=== PATIENT | male | born 1960 | race Caucasian/White ===

== ENCOUNTER 2018-05-21 11:52 | Outpatient (CLI) | payer OTHER, SELFPAY ==
[2018-05-21 12:23] LABS: Abs Immature Grans 0.01 k/cumm (0.0-0.09); Absolute Basophil Count 0.03 k/cumm (0.0-0.2); Absolute Eosinophil Count 0.19 k/cumm (0.0-0.7); Absolute Lymphocyte Count 1.54 k/cumm (1.2-3.4); Absolute Monocyte Count 0.42 k/cumm (0.11-0.7); Absolute Neutrophil Count 2.82 k/cumm (1.2-6.7); Basophils % 0.6; Eosinophils % 3.8; HCT 41.7 % (40.0-50.0); HGB 15.2 g/dL (13.5-17.5); Immature Grans % 0.2; Lymphocytes % 30.7; Mean Corp. HGB Concentration 36.5 g/dL (32.0-36.0); Mean Corpuscular Volume 90.5 fL (80-95); Mean Platelet Volume 9.3 fL (8.0-11.0); Monocytes % 8.4; Neutrophils % 56.3; Platelet Count 187 x1000/uL (130-400); RBC 4.61 m/cumm (4.50-6.00); RBC Distribution Width 12.2 % (11.8-14.1); White Blood Cell Count 5.01 k/cumm (4.4-10.8)
[2018-05-21 13:16] LABS: ALT 41 U/L (12-78); AST 15 U/L (15-37); Albumin 3.7 g/dL (3.4-5.0); Alkaline Phosphatase 81 U/L (46-116); Bilirubin, Total 0.4 mg/dL (0.2-1.0); Total Protein 6.3 g/dL (6.4-8.2)
[2018-05-21 13:27] LABS: Cholesterol 162 mg/dL (50-200); HDL Cholesterol 48 mg/dL (40-60); LDL CHOLESTEROL 94 mg/dL (<100); Triglyceride 223 mg/dL (30-150)
== END 2018-05-21 12:12 ==
PROVIDERS: PCP Emergency Medicine; Visit Provider Dermatology
DX: Z79.899 Other long term (current) drug therapy (principal)
CPT/HCPCS: 36415; 80061; 80076; 83721; 85025

== ENCOUNTER 2018-06-14 15:42 | Outpatient (CLI) | payer OTHER, SELFPAY ==
--- NOTE | 2018-06-14 15:22 | DI.RAD_ITS ---
SYMPTOMS/DIAGNOSIS: COUGH, R05 CHEST X-RAY, PA AND LATERAL: Comparison is 02/19/13. The heart is normal in size. The lungs are clear. The mediastinal structures and pleura appear intact. SUMMARY: Normal chest.
== END 2018-06-14 16:02 ==
PROVIDERS: PCP Emergency Medicine; Visit Provider Nurse Practitioner Family
DX: R05 Cough (principal)
CPT/HCPCS: 71046

== ENCOUNTER 2018-06-18 12:30 | Outpatient (CLI) | payer OTHER, SELFPAY ==
[2018-06-18 13:25] LABS: Absolute Basophil Count 0.01 k/cumm (0.0-0.2); Absolute Eosinophil Count 0.07 k/cumm (0.0-0.7); Absolute Lymphocyte Count 1.42 k/cumm (1.2-3.4); Absolute Monocyte Count 0.56 k/cumm (0.11-0.7); Basophils % 0.2; Eosinophils % 1.7; HCT 41.8 % (40.0-50.0); Mean Corp. HGB Concentration 35.9 g/dL (32.0-36.0); Mean Corpuscular Hemoglobin 32.8 pg (27.0-33.0); Mean Corpuscular Volume 91.3 fL (80-95); Mean Platelet Volume 9.4 fL (8.0-11.0); Monocytes % 13.8; Neutrophils % 49.3; Platelet Count 176 x1000/uL (130-400); RBC 4.58 m/cumm (4.50-6.00); RBC Distribution Width 12.6 % (11.8-14.1); White Blood Cell Count 4.06 k/cumm (4.4-10.8)
[2018-06-18 14:00] LABS: C-Reactive Protein 0.13 mg/dL (0.0-0.3)
[2018-06-18 14:10] LABS: ESR 7 MM/HR (1-20)
[2018-06-18 14:13] LABS: D-Dimer 144 ng/mlFEU (<500)
[2018-06-18 16:11] LABS: CREATININE 0.92 mg/dL (0.70-1.30)
== END 2018-06-18 12:50 ==
PROVIDERS: PCP Emergency Medicine; Visit Provider Emergency Medicine
DX: R06.00 Dyspnea, unspecified (principal); R05 Cough
CPT/HCPCS: 36415; 85652; 82565; 85025; 85379; 86140

== ENCOUNTER 2018-06-21 01:09 | Outpatient (CLI) | payer OTHER, SELFPAY ==
[2018-06-21] MEDS: Omnipaque 350 MG/ML 100 ML BTL IJ (08:59)
--- NOTE | 2018-06-21 09:00 | DI.CT_ITS ---
SYMPTOM/DIAGNOSIS: DYSPNEA, R06.[address]: CT angiography was performed with multi slice acquisition and multi planar and 3D reconstruction. CT scan of the chest was performed according to the pulmonary embolus protocol. There are no priors for comparison. There is no evidence of a pulmonary embolus. The thoracic aorta is of normal caliber. No evidence of aneurysm or dissection is present. Heart size is within normal limits. No significant pericardial effusion is seen. No evidence of right ventricular dysfunction is present. No significant mediastinal , axillary or hilar adenopathy is identified. No pleural effusion or pneumothorax is seen. Dependent atelectatic changes are seen in the lungs. No focal consolidating infiltrates are seen. The tracheobronchial tree is unremarkable. The upper abdominal images are grossly unremarkable. There are degenerative changes seen in the spine. IMPRESSION: 1. No evidence of a pulmonary embolus, thoracic aortic dissection or aneurysm. 2. No acute infiltrates, effusions or pneumothoraces.
== END 2018-06-21 01:29 ==
PROVIDERS: PCP Emergency Medicine; Visit Provider Emergency Medicine
DX: R06.00 Dyspnea, unspecified (principal)
CPT/HCPCS: 71275; J3490

== ENCOUNTER 2018-07-03 00:21 | Outpatient (CLI) | payer OTHER, SELFPAY ==
--- NOTE | 2018-07-03 06:45 | MERGEMPI_ITS ---
*[facility]* *[facility]* [address] [place] [address] Myocardial Perfusion Imaging - SPECT Cachorro protocol Date of study: 07/03/2018 (Report amended ) *PATIENT PRESENTATION* Height: 180.3cm (71in) Blood Pressure: Weight: 111.4kg (245lb) BSA: 2.4m^2 Referring physician: Reid Lauren Ordering physician: Yair Bazzi Impressions: - No evidence for myocardial ischemia. - Low risk of cardiac events. Summary: 1. Myocardial perfusion imaging: No myocardial perfusion defects noted. 2. The calculated left ventricular ejection fraction after stress: 33%, but normal by visual assessment. No left ventricular regional motion abnormality. 3. Stress ECG conclusions: The stress ECG is negative. 4. Stress: The target heart rate was achieved. There is a normal resting blood pressure with an appropriate response to stress. The patient experienced no chest pain during stress. Exercise capacity is godd (12 METS). Recommendations: Transthoracic echocardiography should be performed in order to evaluate LV function. Indication: R06.09, Appropriate Use Criteria: A (Appropriate). History: REASON FOR TESTING: TWO RECENT ER VISIT FOR EPIGASTRIC PAIN THAT RADIATED TO RIGHT AND LEFT SIDES OF HIS FLANK, WELL EXERTIONAL DYSPNEA AND COUGH. WAS PLAYING HOCKY AT THE TIME HAS HAD INTERMITTANT CHEST HEAVINESS. PMH: DUODENAL ULCER AND ESOPHAGITIS, ACTINIC KERATOSIS, BPH, CERVICAL RADICULOPATHY, EXZEMA, HEARING LOSS, DEPRESSION, LAD IN EKG, MELANOMA, PUD, PROSTATISM, MILD RESTLESS LEG. FAMILY HX: MOTHER- HYPERTENSION. CAD, HYPERLIPIDEMIA, CVA. FATHER- CAD, HYPERLIPIDEMIA, OF CO. SISTER- CAD, BROTHER- HYPERLIPIDEMIA. SMOKING: NEVER SMOKER. EXCERCISE: [employer]AMP CLASS TWICE WEEKLY,[place] [employer] IN THE SUMMER, [employer] IN THE WINTER. FAIRLY ACTIVE Risk factors: Cholesterol: 162mg/dl. HDL: 48mg/dl. LDL: 94mg/dl. Triglycerides: 223mg/dl. ALLERGIES: SULFA, TAMSULOSIN, PERTUSSIS VACCINE. MEDICATIONS: OMEGA-3 FATTY ACIDS 1000 MG DAILY, MULTIVITAMIN 1 DAILY, ISOTRETINOIN 40 MG DAILY. DOXASOSIN 4 MG HS, [id number] MG-LEVODOPA 100 MG HS, ATORVASTATIN 5 MG DAILY, ALBUTEROL SULFATE HFA 90 MCG/ACT. 2 PUFFS QID, ACUTANE 40 MG DAILY. Imaging Technique: Protocol: Cachorro protocol. Acquisition: Gated SPECT; 1 day - rest/stress. The patient was imaged in the supine position. Attenuation correction used. Isotope administration: - Rest. Tc[99m]-sestamibi. Dose: 11.8mCi. Injection time: 08:30 AM. Injection to stress time: 00:45. - Stress. Tc[99m]-sestamibi. Dose: 36.1mCi. Injection time: 10:30 AM. 1-2 min before end of exercise Baseline ECG: LAST EKG 10/26/18- SINUS RHYTHM, HR 65. TODAY'S EKG- SINUS BRADYCARDIA, RBBB. HR 50. Sinus bradycardia. Stress protocol: + +---+ +---+ !Stage !HR !BP (mmHg) !Sat! + +---+ +---+ !Baseline supine !50 !114/68 (83) !---! + +---+ +---+ !Baseline standing !63 !124/71 (89) !99%! + +---+ +---+ !Stage I; 1.7mph, 10degrees; 3 min !99 !152/74 (100)!98%! + +---+ +---+ !Stage II; 2.5mph, 12degrees; 3 min !120!162/64 (97) !98%! + +---+ +---+ !Stage III; 3.4mph, 14degrees; 3 min!135!172/78 (109)!98%! + +---+ +---+ !Recovery; 1 min !102!132/62 (85) !---! + +---+ +---+ !Recovery; 3 min !71 !158/72 (101)!---! + +---+ +---+ !Recovery; 6 min !71 !105/62 (76) !---! + +---+ +---+ * Stress results: Maximal heart rate during stress was 154bpm (96% of maximal predicted heart rate). The maximal predicted heart rate was 161bpm. The target heart rate was achieved. There is a normal resting blood pressure with an appropriate response to stress. The rate-pressure product for the peak heart rate and blood pressure was 84444eh Hg/min. The patient experienced no chest pain during stress. Exercise capacity is godd (12 METS). Stress ECG: EXCERCISE TESTING ENDED IN 10 MINS, 19 SECS DUE TO FATIGUE. MAX HR WAS 154, 95% OF TARGET. BLOOD PRESSURE RESPONSE WAS INITIALLY HYPERTENSIVE IN THE FIRST STAGE, BUT THEN PROGRESSED NORMALLY THROUGHT THE REST OF THE STAGES OF EXCERCISE. METS: 12.32 ECTOPY: NONE NOTED. ANGINA: NO CHEST PAIN OR PRESSURE REPORTED. ISCHEMIA: NO ISCHEMIC CHANGES NOTED. The stress ECG is negative. Gudino treadmill score: 10. This score predicts a low risk of cardiac events. Myocardial perfusion: Imaging information: gated. The image quality was good. Left ventricular size is normal. No myocardial perfusion defects noted. Ventricular Function (Wall Motion): The calculated left ventricular ejection fraction after stress: 33%, but normal by visual assessment. No left ventricular regional motion abnormality. Study data: Reid Lauren MD supervised and was readily available during the procedure. This study was interpreted by [facility]. Study status: Routine. Consent: The risks, benefits, and alternatives to the procedure were explained to the patient and informed consent was obtained. Procedure: Initial setup. A baseline ECG was recorded. Surface ECG leads and manual cuff blood pressure measurements were monitored. Heart sounds: Normal. Lung sounds: Normal. Treadmill exercise testing was performed using the Cachorro protocol. Study completion: All catheters inserted during the procedure were removed. The patient tolerated the procedure well and was discharged from the lab. Discharge: The patient left the laboratory in stable condition. Birthdate: Patient birthdate: 1960. Sex: Gender: male. Study date: Study date: 07/03/2018. Study time: 06:45 AM. Signature Documentation: - The imaging portion of this study was interpreted by Nuclear Document Management Specialist Reid Lauren MD. - The imaging portion of this study was interpreted by Nuclear Radiologist Justo Orourke MD. - The Stress ECG portion of this study was interpreted by Reid Lauren MD. Electronically signed by Reid Lauren 07/03/2018 15:50
== END 2018-07-03 00:41 ==
PROVIDERS: PCP Emergency Medicine; Visit Provider Emergency Medicine
DX: R06.09 Other forms of dyspnea (principal); R10.13 Epigastric pain; R07.89 Other chest pain
CPT/HCPCS: 78452; 93017

== ENCOUNTER 2018-08-02 08:56 | Outpatient (CLI) | payer OTHER, SELFPAY ==
[2018-08-02 09:17] LABS: Abs Immature Grans 0.01 k/cumm (0.0-0.09); Absolute Basophil Count 0.01 k/cumm (0.0-0.2); Absolute Monocyte Count 0.34 k/cumm (0.11-0.7); Basophils % 0.3; Eosinophils % 2.8; HCT 42.8 % (40.0-50.0); HGB 15.4 g/dL (13.5-17.5); Immature Grans % 0.3; Lymphocytes % 39.3; Mean Corpuscular Hemoglobin 32.8 pg (27.0-33.0); Mean Corpuscular Volume 91.1 fL (80-95); Mean Platelet Volume 9.4 fL (8.0-11.0); Monocytes % 9.6; Neutrophils % 47.7; Platelet Count 165 x1000/uL (130-400); RBC Distribution Width 12.4 % (11.8-14.1); White Blood Cell Count 3.56 k/cumm (4.4-10.8)
[2018-08-02 11:26] LABS: ALT 44 U/L (12-78); AST 24 U/L (15-37); Albumin 3.7 g/dL (3.4-5.0); Alkaline Phosphatase 71 U/L (46-116); Bilirubin, Direct 0.13 mg/dL (0.00-0.20); Bilirubin, Total 0.5 mg/dL (0.2-1.0); Total Protein 6.4 g/dL (6.4-8.2)
[2018-08-02 11:39] LABS: Cholesterol 178 mg/dL (50-200); HDL Cholesterol 47 mg/dL (40-60); LDL CHOLESTEROL 110 mg/dL (<100); Triglyceride 89 mg/dL (30-150)
== END 2018-08-02 09:16 ==
PROVIDERS: PCP Emergency Medicine; Visit Provider Dermatology
DX: Z79.899 Other long term (current) drug therapy (principal)
CPT/HCPCS: 36415; 80061; 80076; 83721; 85025

== ENCOUNTER 2018-11-27 06:14 | Day surgery (SDC) | payer OTHER, SELFPAY ==
--- NOTE | 2018-11-27 06:21 | HPE_ITS ---
Date of service: 11/27/18 Assessment and Plan (1) History of Khan's esophagus: Current visit: Yes Status: Acute A\\ Hx of Khan's Dyspepsia on no treatment P\\ EGD under sedation Risks, benefits and complications have been reviewed. Complications include but are not limited to bleeding, pain, perforation, sore throat, aspiration, and adverse reaction to the medications. Questions were entertained and answered to their satisfaction and they wished to proceed. No guarantees were given or implied. History of Present Illness Narrative: Vishnu is back to see me today because over the last 3 months he has had some intermittent rectal bleeding. He tells me it started after starting isotretinoin and it is one of the side effects. The bleeding is minimal, usually only on the tissue paper after wiping. He has had no pain. He has not noticed if the episodes of bleeding correlate with his intermittent diarrhea from IBS. He did see a Manager Lean in [place]. He tells me he saw 3 different Doctors. The last Doctor he saw about a year ago took him off the omperazole due to potential side effects. He was not placed on an al ternative which is concerning as he does have Khan's. They did not scope him. The last scope he had was in 2016 by me. He has had heart burn and reflux and has just dealt with them. His last Colonoscopy was in 2013 and was normal. There have been no changes in his health since he was seen in early October. Review of Systems Constitutional Denies fever(s) Cardiovascular Denies chest pain at rest, Denies palpitations, Denies dyspnea and Denies dyspnea on exertion Respiratory Denies dyspnea and Denies dyspnea on exertion Gastrointestinal Reports as per HPI Endocrine Denies palpitations [facility] Medical History Hx of hemorrhoids (Acute) Khan's esophagus determined by biopsy (Acute) IBS (irritable bowel syndrome) (Chronic) Actinic keratosis BPH (benign prostatic hyperplasia) Cervical radiculopathy Depression Hearing loss LAD on EKG Melanoma Peptic ulcer disease Prostatism mild restless leg Surgical History Arthroplasty of knee Colonoscopy - MAC EGD - MAC Repair of inguinal hernia Replacement of total knee joint Tonsillectomy and adenoidectomy Vasectomy left ulnar nerve transplant Social History Smoking/Tobacco Use Status: Never Alcohol Intake: current Alcohol Intake frequency: a few times a week Drug use: Never Substance use type: does not use 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 [email or web address] Do you feel safe at home: Yes Do you feel safe in your relationship?: Yes Meds Home Medications Medication Instructions Recorded Confirmed Type multivitamin 1 ea PO DAILY 10/24/12 11/25/18 History omega-3 fatty acids-fish oil [Fish 1 ea PO DAILY 05/23/17 11/25/18 History Oil 1,000 Mg Capsule] atorvastatin 10 mg tablet 5 mg PO DAILY #45 tab 05/21/18 11/25/18 Rx isotretinoin 40 mg capsule 40 mg PO DAILY cap 06/18/18 11/25/18 History doxazosin 4 mg tablet 4 mg PO HS #90 tab 09/03/18 11/25/18 Rx ranitidine 300 mg capsule 300 mg PO QHS #30 cap 10/18/18 11/25/18 Rx albuterol sulfate 2 puff IH QID PRN 11/25/18 11/25/18 History carbidopa-levodopa 1 tab PO HS PRN 11/25/18 11/25/18 History trazodone 50 mg PO HS PRN 11/25/18 11/25/18 History Allergies Allergy/AdvReac Type Severity Reaction Status Date / Time Sulfa (Sulfonamide Allergy Unknown Unverified 11/26/18 14:45 Antibiotics) pertussis vaccine,adsorbed AdvReac Severe Possible Verified 11/25/18 09:42 reaction- hospitalized tamsulosin HCl [From Flomax] AdvReac Mild Pt didn't Verified 11/25/18 09:42 like side effects Exam Const General: cooperative, healthy appearing and comfortable Orientation: alert and oriented x3 Resp Effort & Inspection: normal respiratory effort Auscultation: clear to auscultation bilaterally Cardio Rate: regular rate Rhythm: regular rhythm Heart Sounds: no click, no gallops and no murmurs
[2018-11-27 06:26] VITALS: BP 128/76; PULSE 56; RESP 18; TEMP 35; O2SAT 95
--- NOTE | 2018-11-27 06:27 | W.PM.ENDDOP ---
Date of service: 11/27/18 Time of Service: : Endoscopy Report DATE OF PROCEDURE: 11/27/18 PRE-OP DIAGNOSIS: Hx of Khan's, Dyspepsia POST-OP DIAGNOSIS: other (Mild duodenitis, mild gastritis, mild to moderate esophagitis) PROCEDURE: EGD with biopsies SURGEON: Dejah Hardy ANESTHESIA: other (General/ ASA 2/ Sly Tillman, SENIOR CONTROLS TECHNICIAN) ESTIMATED BLOOD LOSS: 3 PATHOLOGY: other (Duodenal bx, antrum bx, GE junction bx) COMPLICATIONS: None DISPOSITION: same day INDICATIONS: Mr. Yeager is a pleasant 58 year old male whom I saw in the office for dyspepsia. he has a history of Khan's. He has not been taking any antacids. Risks, benefits and complications have been reviewed. Complications include but are not limited to bleeding, pain, perforation, sore throat, aspiration, and adverse reaction to the medications. Questions were entertained and answered to their satisfaction and they wished to proceed. No guarantees were given or implied. PROCEDURE START TIME: : PROCEDURE END TIME: :33 FINDINGS: Mild inflammation of the 1st portion of the duodenum without ulcers Mild inflammation of the stomach with one polyp Mild to moderate inflammation in the esophagus PROCEDURE DESCRIPTION: After informed consent was obtained the patient was take to the procedure room and placed in a supine position. Monitors were applied and a time out was done. The patients name, date of , procedure type, allergies to medications and metal in their body was reviewed. A bite block was placed and the patient was sedated. Once sedated and comfortable the gastroscope was advanced through the oropharynx which was grossly normal into the esophagus. The proximal and mid-esophagus were normal. In the distal esophagus there was inflammation noted. The scope was advanced into the stomach and through the pylorus into the 3rd portion of the duodenum. The duodenum was noted to be normal in the 3rd and 2nd portions. Mild inflammation was noted in the 1st portion. Biopsies were done in the 1st portion of the duodenum. The scope was retracted back into the stomach and biopsies were done to rule out H. pylori. There were no ulcers. There was one polyp which I removed. The scope was retroflexed. The cardia and fundus were noted to be normal. There was no hiatal hernia noted. The scope was retracted back into the esophagus and biopsies were done of the GE junction for surveillance of his Khan's. The Z line was regular. The GE junction was at 38 cm. The scope was removed and the patient was woken up and taken back to [facility] in stable condition. Follow up: 3-4 weeks in the office. I will increase his Ranitidine to BID for now.
--- NOTE | 2018-11-27 06:29 | W.PM.DSUDISC ---
Discharge Plan Disposition Patient Disposition: HOME Condition: Good Discharge Details Reason For Visit: Dyspepsia, Hx of Khan's Attending Provider: Dejah Hardy Primary Care Provider: Yair Bazzi Home Meds and New Rx's Prescriptions: Continued isotretinoin 40 mg capsule 40 mg PO DAILY RF: 0 multivitamin 1 EACH tablet 1 ea PO DAILY RF: 0 omega-3 fatty acids-fish oil [Fish Oil] 1 EACH capsule 1 ea PO DAILY RF: 0 atorvastatin [Lipitor] 10 mg tablet 5 mg PO DAILY Qty: 45 RF: 3 doxazosin [Cardura] 4 mg tablet 4 mg PO HS Qty: 90 RF: 4 trazodone 50 mg tablet 50 mg PO HS PRNRF: 0 carbidopa-levodopa 10-100 mg tablet 1 tab PO HS PRNRF: 0 albuterol sulfate 90 mcg/actuation HFA aerosol inhaler 2 puff IH QID PRNRF: 0 Changed ranitidine HCl 300 mg capsule 300 mg PO BID Qty: 60 RF: 5 Discharge Instructions Instructions: Upper Endoscopy (DC), Diet for Stomach Ulcers and Gastritis (GEN), Duodenitis (DC), Gastritis (DC) Additional Instructions: Findings: mild inflammation of the small bowel, stomach and esophagus Follow up: 12/10/18 @1:15 pm Please call if you develop: fevers >101.5 Nausea or Vomiting Abdominal pain that is not transient DAY SURGERY UNIT POST COLONOSCOPY INSTRUCTIONS 1. Because there will be medication in your system for the next 24 hours, you may feel a little sleepy. Your coordination will be affected. Therefore: a. Do not drive or operate dangerous equipment for 24 hours. b. Do not drink alcohol beverages for 24 hours (not even beer). c. Plan to go home and rest for the day. 2. Generally there are no restrictions on your activity after a day or so has gone by, but you may feel a bit fatigued for a few days. 3 After you arrive home you may have a light meal and return to a normal diet as you can tolerate it without feeling sick to your stomach. 4. After surgery, you may feel pain or discomfort. This should be only transient, but if it persists please contact your doctor. 5. If there are any questions regarding the findings of your procedure, please feel free to contact your doctor. 6. If you are unable to contact your doctor with a problem, contact the hospital at [phone]. 0. Continue all your regular medications unless directed otherwise. I understand the above instructions and have no questions. Signature of Patient or Responsible Adult Escort Date/Time Name of Responsible Adult Escort Signature of Nurse Date/Time Stand Alone Forms: DSU Post EGD Instructions, Rosanne Theodore (DSU) Referrals: Dejah Hardy MD [ [facility] STAFF PHYSICIAN] - 12/10/18 1:15 pm Activity:: Activity as Tolerated Diet:: low acid Discharge Orders Discharge Orders: Discharge Order (Routine); Ordered 11/27/18 Ordered By: Dejah Hardy DS: Diagnosis Discharge Diagnosis (1) History of Khan's esophagus: Status: Acute (2) Gastritis and duodenitis: Status: Acute (3) Esophagitis: Status: Acute
[2018-11-27] MEDS: Lactated Ringers 1,000 ML 80 ML IV (07:00)
--- NOTE | 2018-11-27 07:29 | STOM_PTH ---
PATIENT: Vishnu Yeager III LOC: [facility] U#:[id number] AGE/SX: 58/M ROOM: RE11/27/[address]: Dejah Hardy MD : 1960 BED: DIS: 11/27/2018 SPEC #: [id number] RECD: 11/27/18 12:43 STATUS: LANIE REQ #: [id number] SUDHAKAR: 11/27/18 07:[address]: Dejah Hardy DEPT: Surgical Specimen RECD BY: Yael Li ENTERED: 11/27/18 12:45 SP TYPE: STOMACH OTHR DR: Yair Bazzi DO Tissues: 1 - BIOPSY BOWEL 2 - STOMACH BIOPSY 3 - ESOPHAGUS BIOPSY Procedures: GROSS AND MICRO LEVEL 4 Comments: [id number]
[2018-11-27 08:05] VITALS: BP 102/53; PULSE 56; RESP 18; TEMP 35.3; O2SAT 96
== END 2018-11-27 08:31 | disposition home or self-care (01) ==
PROVIDERS: PCP Emergency Medicine; Visit Provider Surgery
PROC: 0DJ68ZZ Inspection of Stomach, Via Natural or Artificial Opening Endoscopic (ICD-10-PCS; CPT 43235; principal; 2018-11-27 07:30)
DX: R10.13 Epigastric pain (principal); K21.0 Gastro-esophageal reflux disease with esophagitis; K31.89 Other diseases of stomach and duodenum; K29.80 Duodenitis without bleeding; K22.70 Barrett's esophagus without dysplasia
CPT/HCPCS: 43239; 88305; NC; 87624

== ENCOUNTER 2020-04-02 04:26 | Outpatient (CLI) | payer OTHER, SELFPAY ==
[2020-04-02 08:20] LABS: HCT 43.3 % (40.0-50.0); HGB 15.1 g/dL (13.5-17.5); MCH 32.5 pg (27.0-33.0); MCHC 34.9 % (32.0-36.0); MCV 93.3 fL (80-95); MPV 9.1 fL (8.0-11.0); Platelet Count 167 10^3/uL (130-400); RBC 4.64 10^6/uL (4.36-5.78); RDW 11.9 % (11.8-14.1); RDW-SD 41.1 fL; WBC 4.04 10^3/uL (4.4-10.8)
[2020-04-02 09:04] LABS: ALT 26 U/L (16-63); AST 15 U/L (15-37); Albumin 3.7 g/dL (3.4-5.0); Alkaline Phosphatase 72 U/L (46-116); Anion Gap 9.5 mmol/L (3-11); BUN 21 mg/dL (7-18); Bilirubin, Total 0.6 mg/dL (0.2-1.0); CO2 24.5 mmol/L (21.0-32.0); CREATININE 1.03 mg/dL (0.70-1.30); Calcium 8.5 mg/dL (8.5-10.1); Calculated LDL 124 mg/dL (<100); Chloride 108 mmol/L (98-107); Cholesterol 195 mg/dL (<200); Glucose 99 mg/dL (74-106); HDL Cholesterol 60 mg/dL (40-60); Potassium 4.1 mmol/L (3.5-5.1); Sodium 142 mmol/L (136-145); Total Protein 6.3 g/dL (6.4-8.2); Triglyceride 55 mg/dL (<150)
== END 2020-04-02 04:46 ==
PROVIDERS: PCP Emergency Medicine; Visit Provider Family Medicine
DX: E78.5 Hyperlipidemia, unspecified (principal); I10 Essential (primary) hypertension
CPT/HCPCS: 36415; 80053; 80061; 85027

== ENCOUNTER 2020-11-17 17:55 | Outpatient (REF) | payer OTHER, SELFPAY ==
[2020-11-17 19:23] LABS: C Diff PCR Negative (Negative)
[2020-11-18 22:58] LABS: Campylobacter PCR Negative (Negative); Salmonella PCR Negative (Negative); Shiga Toxin PCR Negative (Negative); Shigella/Enteroinvasive Ecoli Negative (Negative)
[2020-11-19 19:31] LABS: Calprotectin <15.6 mcg/g
[2020-11-23 15:33] LABS: Helicobacter pylori Ag, Feces Negative (Negative)
== END 2020-11-17 17:56 | disposition home or self-care (01) ==
LOC: LBN 17:55
PROVIDERS: PCP Emergency Medicine; Visit Provider Surgery
DX: R19.7 Diarrhea, unspecified (principal)
CPT/HCPCS: 87338; 87493; 87505; 83630; 83993; 87177

== ENCOUNTER 2021-03-18 01:32 | Outpatient (CLI) | payer OTHER, SELFPAY ==
[2021-03-18 12:37] LABS: Hemoglobin A1C 5.5 % (<5.7)
[2021-03-18 12:39] LABS: BUN 16 mg/dL (7-18); Calcium 8.9 mg/dL (8.5-10.1); Calculated LDL 106 mg/dL (<100); Chloride 109 mmol/L (98-107); Cholesterol 186 mg/dL (<200); Glucose 93 mg/dL (74-106); HDL Cholesterol 64 mg/dL (40-60); Potassium 4.3 mmol/L (3.5-5.1); Sodium 146 mmol/L (136-145); Triglyceride 80 mg/dL (<150)
[2021-03-18 18:32] LABS: PSA, Screening 1.8 ng/mL (0.0-4.5)
== END 2021-03-18 01:33 | disposition home or self-care (01) ==
LOC: LOS 01:32
PROVIDERS: PCP Emergency Medicine; Visit Provider Emergency Medicine
DX: I10 Essential (primary) hypertension (principal); E78.5 Hyperlipidemia, unspecified; K58.0 Irritable bowel syndrome with diarrhea; N40.0 Benign prostatic hyperplasia without lower urinary tract symptoms; Z12.5 Encounter for screening for malignant neoplasm of prostate; R35.8 Other polyuria
CPT/HCPCS: 36415; 80048; 80061; 84153; 83036

== ENCOUNTER 2022-02-20 20:31 | Emergency (ER) | payer OTHER, SELFPAY ==
[2022-02-20] VITALS (95 sets, daily range): BP systolic 103–174; BP diastolic 70–98; PULSE 63–96; RESP 13–25; TEMP 36.3; O2SAT 95–99
--- NOTE | 2022-02-20 20:30 | RT.EKG_ITS ---
APPROVED REPORT Exam: Resting ECG Reason for Exam: chest pain Patient Location: E HR:84 bpm ECG Measurements Heart Rate 84 AXIS HI [id number] P [id number] QRSd 100 QRS -46 QT 378 T 11 QTc 448 Conclusion Atrial fibrillation...V-rate 65-102, irreg A-activity Ventricular premature complex...V complex w/ short R-R interval Left anterior fascicular block...axis(240,-40), init forces inf
[2022-02-20 21:02] LABS: Abs Immature Grans 0.01 10^3/uL (0.0-0.06); Absolute Basophil Count 0.03 10^3/uL (0.0-0.2); Absolute Eosinophil Count 0.11 10^3/uL (0.0-0.7); Absolute Lymphocyte Count 1.79 10^3/uL (1.2-3.4); Absolute Monocyte Count 0.63 10^3/uL (0.1-0.8); Absolute Neutrophil Count 2.44 10^3/uL (1.2-6.7); Basophils % 0.6; Eosinophils % 2.2; HCT 43.5 % (40.0-50.0); HGB 15.5 g/dL (13.5-17.5); Immature Grans % 0.2; Lymphocytes % 35.7; MCH 32.7 pg (27.0-33.0); MCHC 35.6 % (32.0-36.0); MCV 92 fL (80-95); MPV 9.2 fL (8.0-11.0); Monocytes % 12.6; Neutrophils % 48.7; Platelet Count 183 10^3/uL (130-400); RBC 4.74 10^6/uL (4.36-5.78); RDW 11.9 % (11.8-14.1); RDW-SD 40.3 fL; WBC 5.01 10^3/uL (4.4-10.8)
--- NOTE | 2022-02-20 21:15 | ED.GENADUL_ITS ---
Discharge Plan Disposition Patient Disposition: HOME Condition: Stable Discharge Details Clinical Impression: Atrial fibrillation, new onset Primary Care Provider: Laron Elizondo ED Provider: Rolando Soriano Home Meds and New Rx's Prescriptions: New atenolol 25 mg tablet 25 mg PO DAILY Qty: 30 0RF Continued azelastine-fluticasone [Dymista] 137-50 mcg/spray spray,non-aerosol 1 spray intranasal BID Qty: 23 6RF Rx Instructions: administer into each nostril cetirizine [Zyrtec] 10 mg tablet 10 mg PO DAILY Qty: 90 3RF loperamide [Anti-Diarrheal (loperamide)] 2 mg capsule 2 mg PO TID PRN (Reason: loose stool) Qty: 90 3RF Rx Instructions: Take 30 minutes before meals multivitamin 1 EACH tablet 1 ea PO DAILY Fish Oil 1 EACH capsule 1 ea PO DAILY famotidine 20 mg tablet 20 mg PO BID Qty: 180 2RF atorvastatin [Lipitor] 10 mg tablet 5 mg PO DAILY Qty: 45 3RF carbidopa-levodopa 10-100 mg tablet 1 tab PO HS PRN (Reason: muscle spasm) Qty: 90 3RF doxazosin [Cardura] 4 mg tablet 4 mg PO HS Qty: 90 3RF Discharge Instructions Instructions: A-fib (Atrial Fibrillation) (ED) Additional Instructions: Avoid strenuous activities until cleared. A cardiac Holter monitor has been ordered to expedite outpatient work-up. You will be contacted to schedule this. Please monitor your blood pressure at least twice a day over the next week. Please contact your primary care physician to arrange follow-up this week. Return to the ER immediately for any worsening or new concerning symptoms. Referrals: Laron Elizondo, [facility] [Primary Care Provider] - Discharge Data Discharge Date/Time-TO BE ENTERED AT DEPARTURE: 02/21/22 01:39 Medical Decision Making 2123 --61-year-old male with history of hyperlipidemia, here with abnormal heart rhythm noted on apple watch since this AM. Patient notes intermittent fatigue recently. Also notes episodes of hot flashes recently. Had fleeting chest tightness earlier. Patient is hemodynamically stable with normal heart rate. I interpreted cardiac cath lab manager and patient is in atrial fibrillation with heart rate in the 70s. EKG was obtained and reviewed and interpreted by me: Patient is in atrial fibrillation, 84 bpm, V rate 65-102. Left axis deviation. Consider thyroid dysfunction. Plan to obtain TSH. Consider electrolyte abnormalities. Consider ACS, will check troponin. -- Labs reviewed and nondiagnostic. Initial troponin and delta troponin negative. Repeat EKG was performed and reviewed and interpreted by me: Please see report, no change from prior. Resting heart rate has remained in the 70s to 80s. When ambulating around the emergency department heart rate ranged from the 80s to 110s. BP has remained stable. Plan to initiate low dose beta myrna. I will start atenolol 25mg daily. Patient was instructed to monitor his blood pressure closely at least twice a day over the next week. [id number] score 0. No indication for anticoagulation therapy. I will order cardiac Holter monitor to expedite outpatient work-up. Patient will need close outpatient follow-up and I will refer him to see his PCP for later this week. All results and discharge plan were discussed with the patient. Patient was instructed to avoid strenuous activities. He was encouraged to follow-up with PCP this week and to return to the ER immediately should he have any worsening or new concerning symptoms. A medical screening exam was performed today and patient stable for discharge. Lab Data Lab results reviewed: Yes I reviewed the patient's lab results. Labs: Laboratory Tests Range/Units 02/20/22 02/20/22 02/20/22 20:56 20:56 23:57 WBC (4.4-10.8) 10^3/uL 5.01 RBC (4.36-5.78) 10^6/uL 4.74 Hgb (13.5-17.5) g/dL 15.5 Hct (40.0-50.0) % 43.5 MCV (80-95) fL 92 MCH (27.0-33.0) pg 32.7 MCHC (32.0-36.0) % 35.6 RDW (11.8-14.1) % 11.9 Plt Count (130-400) 10^3/uL 183 MPV (8.0-11.0) fL 9.2 Immature Gran % 0.2 Neutrophils % 48.7 Lymphocytes % 35.7 Monocytes % 12.6 Eosinophils % 2.2 Basophils % 0.6 Nucleated RBC % (0.0-0.3) % 0.0 Absolute Neutrophils (1.2-6.7) 10^3/uL 2.44 Absolute Lymphocytes (1.2-3.4) 10^3/uL 1.79 Absolute Monocytes (0.1-0.8) 10^3/uL 0.63 Absolute Eosinophils (0.0-0.7) 10^3/uL 0.11 Absolute Basophils (0.0-0.2) 10^3/uL 0.03 Sodium (136-145) mmol/L 139 Potassium (3.5-5.1) mmol/L 3.8 Chloride (98-107) mmol/L 105 Carbon Dioxide (21.0-32.0) mmol/L 26.5 Anion Gap (3-11) mmol/L 7.5 BUN (7-18) mg/dL 21 H Creatinine (0.70-1.30) mg/dL 1.2 Estimated GFR/1.73 m2 (mL/min/1.73m2) >= 60.00 Glucose (74-106) mg/dL 112 H Calcium (8.5-10.1) mg/dL 8.6 Magnesium (1.8-2.4) mg/dL 2.1 Total Bilirubin (0.2-1.0) mg/dL 0.3 AST (15-37) U/L 17 ALT (16-63) U/L 26 Alkaline Phosphatase (46-116) U/L 81 Troponin I (<or=60) ng/L < 50 < 50 Total Protein (6.4-8.2) g/dL 6.7 Albumin (3.4-5.0) g/dL 3.6 TSH (0.36-3.74) uIU/mL 2.67 HPI General Mode of arrival: ambulatory . Date/Time Provider Initiated Documentation: 02/20/22 20:32 . Limitations to Documentation: no limitations . Information obtained by: patient . HPI Narrative: 61-year-old male with history of hyperlipidemia, hypertension noted in past medical problem list from 2012, patient denies hypertension and notes his blood pressure is typically low at baseline, he with chief complaint of abnormal heartbeat. Patient notes that earlier today his Apple Watch alerted him to abnormal heart rhythm atrial fibrillation patient does not have a history of atrial fibrillation. Patient denies palpitations. No modifiers. Patient does note over the past week he has had intermittent episodes of feeling like he is having hot flashes. He also notes separate intermittent episodes of fatigue over the past few weeks. Patient notes yesterday he was mowing the yard and felt like he had no energy. He states he rested and had a beer and felt better. Patient does note an episode earlier today of mild chest tightness that was fleeting and he thought musculoskeletal. No discomfort at this time. Patient notes she has no history of thyroid disease. He drinks approximately 1 beer per day. Minimal to no caffeine intake. Patient is quite active and states he goes to [employer] 3x per week. Related Data Home Medications Medication Instructions Recorded Confirmed multivitamin 1 ea PO DAILY 10/24/12 02/21/22 omega-3 fatty acids-fish oil 340 1 ea PO DAILY 05/23/17 02/21/22 mg-1,000 mg capsule (Fish Oil) famotidine 20 mg tablet 20 mg PO BID #180 tabs 07/17/20 02/21/22 azelastine-fluticasone 137 mcg-50 1 spray intranasal BID #23 grams 03/10/21 02/21/22 mcg/spray nasal spray (Dymista) cetirizine 10 mg tablet (Zyrtec) 10 mg PO DAILY allergy symptoms 03/10/21 02/21/22 #90 tabs atorvastatin 10 mg tablet (Lipitor) 5 mg PO DAILY #45 tabs 06/06/21 02/21/22 carbidopa 10 mg-levodopa 100 mg 1 tab PO HS PRN muscle spasm #90 07/16/21 02/21/22 tablet tabs loperamide 2 mg capsule 2 mg PO TID PRN loose stool #90 12/16/21 02/21/22 (Anti-Diarrheal (loperamide)) caps doxazosin 4 mg tablet (Cardura) 4 mg PO HS #90 tabs 01/13/22 02/21/22 atenolol 25 mg tablet 25 mg PO DAILY #30 tabs 02/21/22 02/21/22 Previous Rx's Medication Instructions Recorded famotidine 20 mg tablet 20 mg PO BID #180 tabs 07/17/20 azelastine-fluticasone 137 mcg-50 1 spray intranasal BID #23 grams 03/10/21 mcg/spray nasal spray (Dymista) cetirizine 10 mg tablet (Zyrtec) 10 mg PO DAILY allergy symptoms 03/10/21 #90 tabs atorvastatin 10 mg tablet (Lipitor) 5 mg PO DAILY #45 tabs 06/06/21 carbidopa 10 mg-levodopa 100 mg 1 tab PO HS PRN muscle spasm #90 07/16/21 tablet tabs loperamide 2 mg capsule 2 mg PO TID PRN loose stool #90 12/16/21 (Anti-Diarrheal (loperamide)) caps doxazosin 4 mg tablet (Cardura) 4 mg PO HS #90 tabs 01/13/22 atenolol 25 mg tablet 25 mg PO DAILY #30 tabs 02/21/22 Allergies Allergy/AdvReac Type Severity Reaction Status Date / Time pertussis vaccine,adsorbed AdvReac Severe Possible Verified 02/20/22 20:38 reaction- hospitalized tamsulosin HCl [From Flomax] AdvReac Mild Pt didn't Verified 02/20/22 20:38 like side effects General Stated Complaint: Palpitatns GRACE: 3 Review of Systems All systems reviewed & are unremarkable except as noted in HPI and below Constitutional Constitutional: Denies fever(s) and Reports lethargy Cardiovascular Cardiovascular: Reports as per HPI and Denies dyspnea Respiratory Respiratory: Denies dyspnea PFSH All Active Problems (Updated 02/21/22 @ 10:53 by Addison Jhaveri MD) Atrial fibrillation, new onset (Acute) [id number] score-0 Onychomycosis (Acute) Sensorineural hearing loss, bilateral (Acute) Vasomotor rhinitis (Acute) Insomnia (Acute) BPPV (benign paroxysmal positional vertigo) (Acute) Vasomotor rhinitis (Acute) Duodenal ulcer (Acute) Prostatitis (Acute) Esophagitis (Acute) Gastritis and duodenitis (Acute) Actinic keratosis (Acute) Khan's esophagus without dysplasia (Acute 11/21/16) BPH (benign prostatic hyperplasia) (Acute) Conductive hearing loss, external ear (Acute 06/15/16) Depressive disorder (Acute) Essential hypertension (Acute 05/19/13) Hyperlipidemia (Acute) Irritable bowel syndrome with diarrhea (Acute 11/21/16) Malignant melanoma of skin (Acute) right chest 10/2011 Migraine without aura and without status migrainosus, not intractable (Acute 10/15/17) RLS (restless legs syndrome) (Acute 11/21/16) Rosacea (Acute) Medical History (Updated 02/21/22 @ 10:53 by Addison Jhaveri MD) Actinic keratosis Khan's esophagus determined by biopsy BPH (benign prostatic hyperplasia) secondary to infection Cervical radiculopathy Pt. states I've never had any neck issues Depression Facial eczema (07/04/13) Hearing loss Hx of hemorrhoids IBS (irritable bowel syndrome) LAD on EKG Pt. states he had a full cardiac work-up and was told my heart skipped a beat, and it was normal, but i've never had a problem with it, but the EKG I had in the fall never showed any evidence of that Melanoma mild restless leg Peptic ulcer disease Prostatism with hematuria Torn rotator cuff states he has not had this repaired yet, and he also states torn bicep tendon as well. Surgical History (Updated 02/21/22 @ 08:02 by Addison Jhaveri MD) Arthroplasty of knee right 1997,2000 Colonoscopy - MAC 08/10/14 EGD - MAC 2013, 2016, 2019 left ulnar nerve transplant 2007 Repair of inguinal hernia right Replacement of total knee joint 01/18/15-RIGHT Tonsillectomy and adenoidectomy Vasectomy Family History Mother , 93 Essential hypertension Depression Heart disease Hyperlipidemia Stroke Cancer Father , 67 Heart disease Hyperlipidemia Sister Heart disease Brother Hyperlipidemia Diabetes Heart disease Maternal Grandfather Heart disease Paternal Grandfather Heart disease Maternal Grandmother No problems noted. Paternal Grandmother No problems noted. Sister Depression Son No problems noted. Son No problems noted. 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 [employer] Pets and animals: Yes Pets and animals: dog(s) Sexually active: Yes Do you think of yourself as: straight/heterosexual Current gender identity: male What is your relationship status?: How often do you talk on the phone with friends or family?: twice per week How often do you get together with friends or relatives?: three or more times per week How often do you attend shinto or denominational services?: 1-3 times per year Do you belong to any clubs or organized social groups?: yes Panel score (0-1 are the most socially isolated patients): 3 Duration: 45-60 minutes/day Frequency: 3-4 times per week Cindy/Adventist: Bahai Seatbelt use: always Helmet use: Yes Helmet use: always Drive intox or ride w/intox ambulance driver: Yes Water heater temp set <120 deg: Yes Working smoke detector in home: Yes Fire extinguisher in home: Yes Carbon monox detector in home: Yes Firearms in home: Yes Do you feel safe at home: Yes Do you feel safe in your relationship?: Yes Exam Const General: cooperative and no acute distress Eyes Conjunctivae: normal conjunctivae Sclera: normal sclerae Neck Neck: trachea midline and supple Thyroid: thyroid normal, no lateral enlargement, no masses and nontender Resp Auscultation: clear to auscultation bilaterally, no rales, no rhonchi and no wheezes Cardio Rate: regular rate and not tachycardic Rhythm: abnormal rhythm Heart Sounds: no murmurs GI Palpation: soft, not firm, no guarding, no masses, not rigid and nontender Skin General skin exam: no rashes or lesions noted Neuro General: patient alert, patient awake, patient oriented x3 and tone normal Extrem General: no calf tenderness and no edema Psych Appearance: grossly normal Mental Status: mental status grossly normal Course Vital Signs Vital signs: Vital Signs Temperature 36.3 C L 02/20/22 20:35 Pulse 74 02/20/22 20:35 Respiratory Rate 18 02/20/22 20:35 Blood Pressure 174/84 H 02/20/22 20:35 Pulse Oximetry 98 02/20/22 20:35 Temperature 36.3 C L 02/20/22 20:35 Pulse 74 02/20/22 20:35 Pulse 77 02/20/22 20:58 Respiratory Rate 14 02/20/22 20:58 Respiratory Effort Non-Labored 02/20/22 20:40 Blood Pressure 174/84 H 02/20/22 20:35 Pulse Oximetry 98 02/20/22 20:58 Pain Level 0 02/20/22 20:35 Lab/Test Results Lab/Test Results: Laboratory Tests Range/Units 02/20/22 20:56 WBC (4.4-10.8) 10^3/uL 5.01 RBC (4.36-5.78) 10^6/uL 4.74 Hgb (13.5-17.5) g/dL 15.5 Hct (40.0-50.0) % 43.5 MCV (80-95) fL 92 MCH (27.0-33.0) pg 32.7 MCHC (32.0-36.0) % 35.6 RDW (11.8-14.1) % 11.9 Plt Count (130-400) 10^3/uL 183 MPV (8.0-11.0) fL 9.2 Immature Gran % 0.2 Neutrophils % 48.7 Lymphocytes % 35.7 Monocytes % 12.6 Eosinophils % 2.2 Basophils % 0.6 Nucleated RBC % (0.0-0.3) % 0.0 Absolute Neutrophils (1.2-6.7) 10^3/uL 2.44 Absolute Lymphocytes (1.2-3.4) 10^3/uL 1.79 Absolute Monocytes (0.1-0.8) 10^3/uL 0.63 Absolute Eosinophils (0.0-0.7) 10^3/uL 0.11 Absolute Basophils (0.0-0.2) 10^3/uL 0.03
[2022-02-20 21:33] LABS: ALT 26 U/L (16-63); AST 17 U/L (15-37); Albumin 3.6 g/dL (3.4-5.0); Alkaline Phosphatase 81 U/L (46-116); Anion Gap 7.5 mmol/L (3-11); BUN 21 mg/dL (7-18); Bilirubin, Total 0.3 mg/dL (0.2-1.0); CO2 26.5 mmol/L (21.0-32.0); CREATININE 1.2 mg/dL (0.70-1.30); Calcium 8.6 mg/dL (8.5-10.1); Chloride 105 mmol/L (98-107); Glucose 112 mg/dL (74-106); Magnesium 2.1 mg/dL (1.8-2.4); Potassium 3.8 mmol/L (3.5-5.1); Sodium 139 mmol/L (136-145); TSH (W/Ref FT4) 2.67 uIU/mL (0.36-3.74); Total Protein 6.7 g/dL (6.4-8.2); Troponin I < 50 ng/L (<or=60)
--- NOTE | 2022-02-20 23:30 | RT.EKG_ITS ---
APPROVED REPORT Exam: Resting ECG Reason for Exam: chest discomfort earlier Patient Location: E HR:83 bpm ECG Measurements Heart Rate 83 AXIS CO [id number] P [id number] QRSd 98 QRS -51 QT 360 T 28 QTc 424 Conclusion Atrial fibrillation...V-rate 62- 94, irreg A-activity Left anterior fascicular block...axis(240,-40), init forces inf Low voltage, precordial leads...precordial leads <1.0mV
[2022-02-21] VITALS (19 sets, daily range): BP systolic 116; BP diastolic 87; PULSE 65–91; RESP 16–27; TEMP 36.2; O2SAT 96–98
[2022-02-21 00:21] LABS: Troponin I < 50 ng/L (<or=60)
--- NOTE | 2022-02-21 01:01 | NUR.NOTE ---
Nursing Note: Patient ambulated around this time to monitor heart rate. Upon initially standing, his heart rate increased to 118bpm, then stabilized between 94 to 106bpm. Doctor notified and verbalized this range as appropriate.
[2022-02-21] MEDS: Atenolol 25 MG TAB PO (01:26)
== END 2022-02-21 01:39 | disposition home or self-care (01) ==
PROVIDERS: Emergency Provider Student in an Organized Health Care Education/Training Program; PCP Nurse Practitioner Family
DX: I48.91 Unspecified atrial fibrillation (principal); R53.83 Other fatigue; E07.9 Disorder of thyroid, unspecified; I10 Essential (primary) hypertension; Z77.22 Contact with and (suspected) exposure to environmental tobacco smoke (acute) (chronic)
CPT/HCPCS: 80053; 93005; 99283; 83735; 84443; 84484; 85025; 93010; 99285

== ENCOUNTER 2022-03-09 01:51 | Outpatient (RCR) | payer OTHER, SELFPAY ==
--- NOTE | 2022-03-09 09:00 | HOLTER_ITS ---
APPROVED REPORT Conclusion This is a 48-hour Holter monitor reportedly ordered for atrial fibrillation Predominant rhythm was sinus with an average heart rate of 52. Minimum was 39, maximum 86 There were very rare ventricular ectopic beats There were rare atrial premature beats A total of 8 runs of supraventricular tachycardia occurred. The longest of these was 15 beats in dur ation, maximum rate 137 There was no atrial fibrillation, no high-grade AV block, no pauses greater than 3 seconds No patient symptoms were reported
== END 2022-03-19 23:59 | disposition home or self-care (01) ==
LOC: RT 01:51
PROVIDERS: PCP Nurse Practitioner Family; Visit Provider Student in an Organized Health Care Education/Training Program
DX: I48.91 Unspecified atrial fibrillation (principal); I47.1 Supraventricular tachycardia
CPT/HCPCS: 93225; 93226

== ENCOUNTER → 2022-03-21 02:01 | Outpatient (CLI) | payer OTHER, SELFPAY ==
--- NOTE | 2022-03-21 14:59 | DI.US_ITS ---
APPROVED REPORT EXAM: Comprehensive 2D, Doppler, and color-flow Echocardiogram Patient Location: Out-Patient Building Certifier: Kristi Acuna RDCS (AE) Indications: New onset A Fib Other Information Study Quality: Adequate Conclusion Normal left ventricular wall thickness and chamber size. Estimated ejection fraction is 60%. Wall m otion is normal Normal right ventricular size and systolic function Both atria are normal in size There is no structural or hemodynamically significant valvular disease Mildly dilated ascending aorta Patient was in sinus rhythm throughout the study Wall motion Left Ventricle The left ventricle is normal size. The left ventricular systolic function is normal. The left ventric ular ejection fraction is within the normal range. There is normal left ventricular wall thickness. T here is normal LV segmental wall motion. There is no ventricular septal defect visualized. LVEF is 60 %. Right Ventricle The right ventricle is normal size. The right ventricular systolic function is normal. The RVSP is 27 .1 mmHg. Atria The left atrium size is normal. The right atrium size is normal. The interatrial septum is intact wit h no evidence for an atrial septal defect. Aortic Valve The aortic valve is normal in structure. Aortic valve is trileaflet. There is no aortic valvular sten osis. No aortic regurgitation is present. Mitral Valve The mitral valve is normal in structure. No evidence of mitral valve stenosis. Mild mitral regurgitat ion. Tricuspid Valve The tricuspid valve is normal in structure. There is no tricuspid valve stenosis. Trace tricuspid reg urgitation. Pulmonic Valve The pulmonary valve is normal in structure. There is no pulmonic valvular stenosis. Trace pulmonic re gurgitation. Great Vessels The aortic root is normal in size. The ascending aorta is mildly dilated. Aortic arch is normal in ca liber. IVC is normal in size and collapses >50% with inspiration. Pericardium There is no pericardial effusion. 2D Dimensions IVSD d PLAX 1.11 cm M: 0.6-1.2 LV Vol A2C d MOD 120.9 mL LVPW d PLAX 1.12 cm M: 0.6 - 1.2 LV Vol A4C d MOD 125.7 mL LVID d PLAX 5.39 cm M: 4.2 - 5.8 LA vol/ BSA A2C s A-L 28.2 mL/m2 LVDs 3.70 cm M: 2.5 - 4.0 LA vol/ BSA A4C s A-L 25.0 mL/m2 Ao Root d 3.18 cm M: 3.1 - 3.7 LA Vol/ BSA Biplane s A-L 27.1 mL/m2 RA Area A4C 16.79 cm2 LA Area A4C s MOD 20.20 cm2 RA Vol/ BSA A4C s A-L 18.5 mL/m2 LA Area A2C s MOD 21.87 cm2 Ao Asc Diam d 3.89 cm M: 2.6 - 3.4 LV EF A4C MOD 55.1 % LV EF Teichholz 58.5 % LV EF A2C MOD 55.0 % LVEF (Tay's) 55.25 % M: 52 - 72 LV EF Biplane MOD 55.3 % LV Volume 89.62 mL M: 62 - 150 SV 68.83 mL LV Volume Index 39.30 mL/m2 M: 34 - 74 SV Index 30.20 mL/m2 LV Vol Biplane MOD 124.6 mL FS 31.20 % M-Mode TAPSE 2.83 cm (M/F) >1.7 LV Diastology MV E' medial 0.087 (>0.07 m/s) E/A Ratio 1.6 LV E/e MED 8.30 (<14) MV E Vmax 0.72 (0.4-1.3 m/s) MV E' lateral 0.121 (>0.1 m/s) MV A Vmax 0.45 (0.4-1.3 m/s) LV E/e LAT 5.95 (<14) MV E/A Ratio 1.57 MV E/E' medial 8.34 MV E/E' lateral 5.98 Aortic Valve LVOT Area 3.91 cm2 AoV Area Vmax 3.01 cm2 LVOT Vmax 1.17 m/s AoV Area/ BSA (Vmax) 1.32 cm2/m2 LVOT Mean Colin. 0.79 m/s PATRICIA Mean Colin. 2.86 cm2 LVOT Peak Grad 5.5 mmHg PATRICIA Mean Colin. Index 1.26 cm2/m2 LVOT Mean Grad 2.9 mmHg LVOT VTI 0.265 m LVOT Diam s 2.20 cm AoV Vmax 1.53 m/s Velocity Ratio 0.76 AoV Mean Colin. 1.07 m/s AoV Peak Grad 9.3 mmHg LVOT SV 103.89 mL AoV Mean Grad 5.1 mmHg AoV VTI 0.312 m AoV Area VTI 3.33 cm2 AoV Area/ BSA (VTI) 1.46 cm/m2 Mitral Valve MV DT 224 (160-240 msec) MV PHT 65 msec MV Area PHT 3.39 cm2 MV VTI 0.353 m MV Area VTI 2.94 (4.0-6.0 cm2) Pulmonary Valve PV Vmax 0.97 (0.5-1.5 m/s) RVOT Peak Gr. 2.36 mmHg PV Peak Grad 3.7 mmHg RVOT Mean Gr. 1.20 mmHg PV Mean Grad 2.0 mmHg RVOT VTI 0.164 m PV VTI 0.230 m RVOT Vmax 0.77 m/s Tricuspid Valve TR Peak Grad 24.0 mmHg TR Vmax 2.45 m/s RA Pressure 3.00 mmHg RVSP (TR) 27.1 mmHg
== END ==
PROVIDERS: PCP Nurse Practitioner Family; Visit Provider Family Medicine
DX: I48.91 Unspecified atrial fibrillation (principal)
CPT/HCPCS: 93306

== ENCOUNTER 2022-04-11 09:52 | Outpatient (CLI) | payer OTHER, SELFPAY ==
--- NOTE | 2022-04-11 09:45 | RT.EKG_ITS ---
APPROVED REPORT Exam: Resting ECG Reason for Exam: NPW baseline needed, New onset Afib Patient Location: O HR:44 bpm ECG Measurements Heart Rate 44 AXIS NH 188 P 44 QRSd 118 QRS -33 QT 452 T -7 QTc 387 Conclusion Sinus bradycardia...rate< 50 Atrial premature complex...SV complex w/ short R-R interval Left anterior fascicular block...axis(240,-40), init forces inf Incomplete right bundle branch block
== END 2022-04-11 09:53 | disposition home or self-care (01) ==
LOC: DI.CARD 09:54
PROVIDERS: PCP Nurse Practitioner Family; Visit Provider Internal Medicine Cardiovascular Disease
DX: I48.91 Unspecified atrial fibrillation (principal); R94.31 Abnormal electrocardiogram [ECG] [EKG]; R00.1 Bradycardia, unspecified; I49.1 Atrial premature depolarization; I44.4 Left anterior fascicular block; I45.19 Other right bundle-branch block
CPT/HCPCS: 93010

== ENCOUNTER 2022-06-22 03:07 | Outpatient (CLI) | payer OTHER, SELFPAY ==
[2022-06-22 09:38] LABS: Hemoglobin A1C 5.4 % (<5.7)
[2022-06-22 10:41] LABS: Calculated LDL 94 mg/dL (<100); Cholesterol 165 mg/dL (<200); HDL Cholesterol 60 mg/dL (40-60); Triglyceride 55 mg/dL (<150)
[2022-06-22 19:44] LABS: PSA, Screening 1.5 ng/mL (<=4.5)
== END 2022-06-22 03:08 | disposition home or self-care (01) ==
PROVIDERS: PCP Nurse Practitioner Family; Visit Provider Nurse Practitioner Family
DX: Z13.1 Encounter for screening for diabetes mellitus (principal); N40.0 Benign prostatic hyperplasia without lower urinary tract symptoms; E78.5 Hyperlipidemia, unspecified; Z12.5 Encounter for screening for malignant neoplasm of prostate
CPT/HCPCS: 36415; 80061; 84153; 83036

== ENCOUNTER 2022-09-21 09:09 | Outpatient (CLI) | payer OTHER, SELFPAY ==
--- NOTE | 2022-09-21 09:00 | RT.EKG_ITS ---
APPROVED REPORT Exam: Resting ECG Reason for Exam: PAF Patient Location: O HR:54 bpm ECG Measurements Heart Rate 54 AXIS SC 196 P 19 QRSd 108 QRS -50 QT 438 T 2 QTc 416 Conclusion Sinus rhythm...normal P axis, V-rate 50- 99 Left anterior fascicular block...axis(240,-40), init forces inf Low voltage, precordial leads...precordial leads <1.0mV RSR' in V1 or V2, probably normal variant...small R' only
== END 2022-09-21 09:10 | disposition home or self-care (01) ==
LOC: DI.CARD 09:10
PROVIDERS: PCP Nurse Practitioner Family; Visit Provider Internal Medicine Cardiovascular Disease
DX: I48.0 Paroxysmal atrial fibrillation (principal); R94.31 Abnormal electrocardiogram [ECG] [EKG]; I44.4 Left anterior fascicular block
CPT/HCPCS: 93010

== ENCOUNTER 2022-11-22 07:34 | Outpatient (CLI) | payer OTHER, SELFPAY | END 2022-11-22 07:35 | disposition home or self-care (01) | LOC: DI.CARD 07:35 | PROVIDERS: PCP Nurse Practitioner Family; Visit Provider Internal Medicine Cardiovascular Disease | CPT/HCPCS: 93010 ==

== ENCOUNTER 2023-03-19 02:47 | Outpatient (CLI) | payer OTHER, SELFPAY ==
[2023-03-19 12:58] LABS: HCT 42.1 % (40.0-50.0); HGB 14.6 g/dL (13.5-17.5); MCH 31.9 pg (27.0-33.0); MCHC 34.7 % (32.0-36.0); MCV 92 fL (80-95); MPV 9.2 fL (8.0-11.0); Platelet Count 178 10^3/uL (130-400); RBC 4.58 10^6/uL (4.36-5.78); RDW-SD 40.3 fL; WBC 4.78 10^3/uL (4.4-10.8)
[2023-03-19 13:05] LABS: BUN 17 mg/dL (7-18); Calcium 8.6 mg/dL (8.5-10.1); Chloride 107 mmol/L (98-107); Estimated GFR 84.57 (mL/min/1.73m2); Glucose 118 mg/dL (74-106); Potassium 3.8 mmol/L (3.5-5.1); Sodium 141 mmol/L (136-145)
== END 2023-03-19 02:48 | disposition home or self-care (01) ==
LOC: LBO 02:47
PROVIDERS: PCP Nurse Practitioner Family; Visit Provider Internal Medicine Cardiovascular Disease
DX: R42 Dizziness and giddiness (principal); I48.0 Paroxysmal atrial fibrillation; Z98.890 Other specified postprocedural states
CPT/HCPCS: 36415; 80048; 85027

== ENCOUNTER 2023-06-20 07:51 | Outpatient (CLI) | payer OTHER, SELFPAY ==
--- NOTE | 2023-06-20 07:45 | RT.EKG_ITS ---
APPROVED REPORT Exam: Resting ECG Reason for Exam: PAF Patient Location: O HR:56 bpm ECG Measurements Heart Rate 56 AXIS TN 192 P 8 QRSd 103 QRS -51 QT 414 T -2 QTc 400 Conclusion Sinus rhythm...normal P axis, V-rate 50- 99 Left anterior fascicular block...axis(240,-40), init forces inf Low voltage, precordial leads...precordial leads <1.0mV
== END 2023-06-20 07:52 | disposition home or self-care (01) ==
LOC: DI.CARD 07:52
PROVIDERS: PCP Nurse Practitioner Family; Visit Provider Internal Medicine Cardiovascular Disease
DX: I48.0 Paroxysmal atrial fibrillation (principal)
CPT/HCPCS: 93010

== ENCOUNTER 2023-07-06 03:07 | Outpatient (CLI) | payer OTHER, SELFPAY ==
[2023-07-06 09:58] LABS: Calculated LDL 69 mg/dL (<100); Cholesterol 141 mg/dL (<200); Estimated GFR 84.05 (mL/min/1.73m2); HDL Cholesterol 61 mg/dL (40-60); Potassium 4.1 mmol/L (3.5-5.1); Triglyceride 56 mg/dL (<150)
[2023-07-06 19:43] LABS: PSA, Screening 1.8 ng/mL (<=4.5)
== END 2023-07-06 03:08 | disposition home or self-care (01) ==
PROVIDERS: PCP Nurse Practitioner Family; Visit Provider Nurse Practitioner Family
DX: I10 Essential (primary) hypertension (principal); N40.0 Benign prostatic hyperplasia without lower urinary tract symptoms; E78.5 Hyperlipidemia, unspecified
CPT/HCPCS: 36415; 80061; 84153; 82565; 84132

== ENCOUNTER 2023-12-07 09:12 | Day surgery (SDC) | payer OTHER, SELFPAY ==
--- NOTE | 2023-12-06 19:36 | W.COLOREPORT ---
Date of service: 12/07/23 Time of Service: 16:08 Colonoscopy Report Date of procedure: 12/07/23 Pre-op diagnosis general: crc screening Post-op diagnosis procedure note: other (Diverticula) Surgeon: Jenn Smith Anesthesia Type: General:No Airway Estimated blood loss (mL): 0 Pathology: other Complications: None Disposition: same day Prep: Miralax/Dulcolax Retraction Time: 8 Procedure Description: After informed consent was obtained the patient was taken to the procedure room and placed in a left decubitous position. Monitors were applied and a time out was done. The patients name, date of , procedure, allergies to medications and metal in their body was reviewed. The patient was then sedated. Once sedated and comfortable a rectal exam was done. External exam was normal. Internal exam revealed a normal sphincter tone and no palpable masses. The prostate-no palpable masses The scope was then introduced and retrofelexed. No internal hemorrhoids were identified. The scope was then advanced to the cecum without difficulty. The TI and appendiceal orifice were identified. The scope was then slowly retracted over a minutes back into the rectum. There are no polyps or AVMs visualized. He has a few a moderate amount of medium sized diverticula confined to the sigmoid colon. There is no signs of active bleeding or infection. The mucosa is pink and healthy with a normal vascular pattern.. The scope was removed and the patient was woken up and taken back to Same day surgery in stable condition. The patient tolerated the procedure well and there were no immediate complications. Follow up: The patient should follow up in 10 years unless they develop changes in bowel habits or other new gastrointestinal complaints. Broad Top Bowel Prep Broad Top Bowel Prep Right Colon: 3 Left Colon: 3 Transverse Colon: 3 Total Score: 9
--- NOTE | 2023-12-06 19:39 | ENDO_ITS ---
Date of service: 12/07/23 Time of Service: 16:11 Endoscopy Report DATE OF PROCEDURE: 12/07/23 PRE-OP DIAGNOSIS: GERD/Khan's POST-OP DIAGNOSIS: same SURGEON: Jenn Smith ANESTHESIA TYPE: General:No Airway ESTIMATED BLOOD LOSS: 1 PATHOLOGY: other COMPLICATIONS: None DISPOSITION: same day PROCEDURE DESCRIPTION: After informed consent was obtained the patient was take to the procedure room and placed in a supine position. Monitors were applied and a time out was done. The patients name, date of , procedure type, allergies to medications and metal in their body was reviewed. A bite block was placed and the patient was sedated. Once sedated and comfortable the gastroscope was advanced through the oropharynx which was grossly normal into the esophagus. The proximal and mid- esophagus were normal. In the distal esophagus there are no: Esophageal vari tommy diverticula or stenosis. He has some mild chronic changes associated with Khan's at the GE junction. There is no active ulceration or erosion. The scope was advanced into the stomach and through the pylorus into the 3rd portion of the duodenum. The duodenum was noted to be normal. Biopsies were done, all specimens are retrieved and no bleeding is noted.. The scope was retracted back into the stomach and biopsies were done to rule out H. pylori. There were no gastritis or ulcers. The scope was retroflexed. The cardia and fundus were noted to be normal. There is no a hiatal hernia noted. The scope was retracted back into the esophagus and biopsies were done of the GE junction to rule out Khan's. The Z line was irregular. The GE junction was at 40 cm. The scope was removed and we continued onto the colonoscopy.
--- NOTE | 2023-12-06 19:43 | W.PM.DSUDISC ---
Date of service: 12/07/23 Time of Service: 12:29 Discharge Plan Disposition Patient Disposition: Home Condition: Good Discharge Details Reason For Visit: egd & colo Attending Provider: Jenn Smith Primary Care Provider: Laron Elizondo Home Meds and New Rx's Prescriptions: Continued Eliquis 5 mg tablet 5 mg PO BID multivitamin 1 EACH tablet 1 ea PO DAILY Fish Oil 1 EACH capsule 1 ea PO DAILY famotidine 20 mg tablet 20 mg PO BID Qty: 180 2RF carbidopa-levodopa 10-100 mg tablet 1 tab PO HS PRN (Reason: muscle spasm) Qty: 90 3RF doxazosin [Cardura] 4 mg tablet 4 mg PO HS Qty: 90 3RF atorvastatin 20 mg tablet 20 mg PO DAILY Rx Instructions: [place] [facility]/19/2023. -hb azelastine-fluticasone [Dymista] 137-50 mcg/spray spray,non-aerosol 1 spray intranasal BID Qty: 23 6RF Rx Instructions: administer into each nostril metronidazole 0.75 % cream 1 applic topical BID PRN (Reason: rosacea) Qty: 45 1RF loperamide [Anti-Diarrheal (loperamide)] 2 mg capsule 2 mg PO TID PRN (Reason: loose stool) Qty: 90 3RF Rx Instructions: Take 30 minutes before meals Discontinued bisacodyl [Dulcolax (bisacodyl)] 5 mg tablet,delayed release (DR/EC) 5 mg PO ONCE Qty: 4 0RF Rx Instructions: Take per colonoscopy instructions provided by ordering providers office polyethylene glycol 3350 17 gram/dose powder 17 g PO ONCE Qty: 238 0RF Rx Instructions: Take per colonoscopy instructions provided by ordering providers office Discharge Instructions Additional Instructions: DSU Colonoscopy Post-Op Instructions Instructions for Everyone who is given Anesthesia: For your safety, please do the following for the next twenty-four (24) hours: *Do Not operate a motor vehicle (car, truck, motorcycle, etc.) *Do Not drink alcoholic beverages or use any recreational drugs for the first 24 hours or while taking pain medications. The medications in your body may have a reaction that can be dangerous. *Do Not make any important decisions or sign any important papers. -Resume apixaban Sunday. Findings: Upper: Mild changes consistent with Khan's in the distal esophagus. Continue to take famotidine. Biopsies were done. My office will send you a copy of the results in 2 to 3 weeks time. Continue with lifestyle modifications: no alcohol, tobacco products, Aspirin or NSAID's (ibuprofen, Motrin, Naprosyn, aleve, etc), soda pop/any carbonated beverages, caffeine (including tea & chocolate), and acidic foods, (tomatoes, citrus, onions, peppermints) spicy or fried/fatty foods. Do not lie down for 30 minutes after eating, and do not eat 2 hours prior to bedtime. Avoid wearing tight fitting clothing/ belts Lower: No polyps. Diverticula: Make sure you are moving your bowels on a regular basis and not straining to go to the bathroom. If you find that you have problems with constipation or straining, then a fiber supplement such as Metamucil is recommended. See handout. Follow up: Repeat EGD/stomach scope in 3 years time. Colon scope in 10 years time. 1. No lifting over 20 pounds or strenuous activity for the first 24 hours after your procedure. After 24 hours there are no restrictions on your activity but you may feel fatigued for a few days. 2. After you arrive home you may have a light meal and return to your normal diet as you can tolerate it without feeling sick to your stomach. 3. You may have a bloated, gaseous feeling in your belly (abdomen) after a colonoscopy. Passing gas and belching will help. Walking or lying down on your left side with your knees flexed may relieve the discomfort. Call the office at [phone] (Office) or [phone] (Hospital) right away if you notice any of the following: a.Vomiting of blood or ?coffee ground stools?. b.Rectal bleeding 1Tbsp, blood clots or continuous bleeding. c.Severe belly (abdominal) pain. d.A hard distended belly (abdomen) and an inability to pass gas. 4. Please don?t expect to have a normal BM (bowel movement) for 2-3 days after your procedure. 5. If there are questions regarding the findings of your procedure, please contact your doctor 6. If you are unable to contact your doctor with a problem, contact the hospital at [phone]. 7. Continue all your regular medications unless directed otherwise. I understand the above instructions and have no questions. 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
[2023-12-07 09:29] VITALS: BP 125/78; PULSE 67; RESP 16; TEMP 36.4; O2SAT 95
[2023-12-07] MEDS: Lactated Ringers 1,000 ML 80 ML IV (09:51)
--- NOTE | 2023-12-07 10:07 | W.ANESPRE ---
General Info Date of Service Date Performed: 12/07/23 Height: 5 ft 11 in Weight: 110.3 kg Body Mass Index (BMI): 33.9 Surgical Procedure: Operation Date: 12/07/23 10:20 Proposed Procedure Side Surgeon p Colonoscopy/Gastroscopy Jenn Smith, DO Meds Allergies and Home Medications Allergies Allergy/AdvReac Type Severity Reaction Status Date / Time pertussis vaccine,adsorbed AdvReac Severe Possible Verified 12/07/23 09:27 reaction- hospitalized tamsulosin HCl [From Flomax] AdvReac Mild Pt didn't Verified 12/07/23 09:27 like side effects Home Medication Medication Instructions Recorded multivitamin 1 ea PO DAILY 10/24/12 omega-3 fatty acids-fish oil 340 1 ea PO DAILY 05/23/17 mg-1,000 mg capsule (Fish Oil) famotidine 20 mg tablet 20 mg PO BID #180 tabs 07/17/20 carbidopa 10 mg-levodopa 100 mg 1 tab PO HS PRN muscle spasm #90 01/04/23 tablet tabs doxazosin 4 mg tablet (Cardura) 4 mg PO HS #90 tabs 02/16/23 atorvastatin 20 mg tablet 20 mg PO DAILY 03/13/23 azelastine 137 mcg-fluticasone 50 1 spray intranasal BID #23 grams 06/26/23 mcg/spray nasal spray (Dymista) metronidazole 0.75 % topical cream 1 applic topical BID PRN rosacea 06/27/23 #45 grams loperamide 2 mg capsule 2 mg PO TID PRN loose stool #90 07/06/23 (Anti-Diarrheal (loperamide)) caps apixaban 5 mg tablet (Eliquis) 5 mg PO BID 11/26/23 Current Visit Medications: Current Medications Generic Name Dose Route Start Last Admin Trade Name Freq PRN Reason Stop Dose Admin Hyoscyamine Sulfate 0.125 mg 12/07/23 02:03 Hyoscyamine 0.125 Mg Sl/Oral/Chew SL 01/06/24 02:02 DIRECTED PRN Ringer's Solution 1,000 mls @ 80 mls/hr 12/07/23 06:00 12/07/23 09:51 IV 12/18/23 23:59 80 mls/hr INFUSION JOSUÉ Administration IV Miscellaneous Supplies 1 each 04/19/24 06:00 Iv Access IV 12/18/23 23:59 DIRECTED JOSUÉ Ondansetron HCl 4 mg 12/07/23 02:03 Ondansetron 4 Mg/2 Ml Vial IVP 01/06/24 02:02 Q4H PRN PRN Nausea / Vomiting Sodium Chloride 0 ml 12/07/23 06:00 Normal Saline Flush 10 Ml Syr IV 12/18/23 23:59 PRN PRN Sodium Chloride 0 ml 12/07/23 06:00 Normal Saline 10 Ml Vial IJ 12/18/23 23:59 DIRECTED PRN Sterile Water 0 ml 12/07/23 06:00 Water,Injection,Sterile 10 Ml Vial IJ 12/18/23 23:59 DIRECTED PRN PFSH Active Problems Active Problems: Problem Status Onset Code BCC (basal cell carcinoma) C44.91 IBS (irritable bowel syndrome) K58.9 Family history of ischemic heart disease Z82.49 Paroxysmal atrial fibrillation I48.0 Onychomycosis B35.1 Sensorineural hearing loss, bilateral H90.3 Vasomotor rhinitis J30.0 Insomnia G47.00 Vasomotor rhinitis J30.0 Duodenal ulcer K26.9 Esophagitis K20.9 Actinic keratosis L57.0 Khan's esophagus without dysplasia 11/21/16 K22.70 BPH (benign prostatic hyperplasia) N40.0 Essential hypertension 05/19/13 I10 Hyperlipidemia E78.5 Irritable bowel syndrome with diarrhea 11/21/16 K58.0 Malignant melanoma of skin C43.9 Migraine without aura and without status migrainosus, not intractable 10/15/17 G43.009 RLS (restless legs syndrome) 11/21/16 G25.81 Rosacea L71.9 Medical History Medical History Atrial fibrillation BPPV (benign paroxysmal positional vertigo) Prostatitis Torn rotator cuff states he has not had this repaired yet, and he also states torn bicep tendon as well. Hx of hemorrhoids Facial eczema (07/04/13) LAD on EKG Pt. states he had a full cardiac work-up and was told my heart skipped a beat, and it was normal, but i've never had a problem with it, but the EKG I had in the fall never showed any evidence of that Peptic ulcer disease Prostatism with hematuria Melanoma Actinic keratosis Surgical History Surgical History H/O cardiac radiofrequency ablation Status post circumferential ablation of pulmonary vein [facility] [place]/19/23 PVI Ablation. -hb left ulnar nerve transplant 2006 Vasectomy Replacement of total knee joint 01/18/15-RIGHT Tonsillectomy and adenoidectomy Repair of inguinal hernia right EGD - MAC 2013, 2015, 2018 Colonoscopy - MAC 08/10/14 Arthroplasty of knee right 1997,2000 Tobacco Smoking/Tobacco Use Status: Never Passive smoking exposure: Yes Second hand exposure: Yes Alcohol Alcohol Intake: current Alcohol intake frequency: a few times a month Alcohol type: beer Substance Use Substance use: Never Substance use type: does not use Vital Signs and Lab Results Vital Signs Most Recent Vital Signs in EMR: Most Recent Vital Signs Temp Pulse Resp BP Pulse Ox 36.4 C L 67 16 125/78 95 12/07/23 09:29 12/07/23 09:29 12/07/23 09:29 12/07/23 09:29 12/07/23 09:29 Lab Results Blood Type / Crossmatch: No Data to Display Complete Blood Count: No Data to Display Complete Metabolic Panel: No Data to Display Liver Function Panel: No Data to Display Coagulation Panel: No Data to Display Cardiac Panel: No Data to Display Arterial Blood Gas: No Data to Display Venous Blood Gas: No Data to Display Pancreas Panel: No Data to Display Thyroid Panel: No Data to Display Infectious Disease: No Data to Display Blood Cultures: No Data to Display Toxicology Panel: No Data to Display Imaging and Studies Imaging and Studies Study information below may be from another EMR and interpreted by another provider. Please see original notes in EMR for more complete details. EKG Summary: DATE/TIME OF SERVICE: 06/20/23899 : 1960 PERFORMING LOCATION: .CARD APPROVED REPORT Exam: Resting ECG Reason for Exam: PAF Patient Location: O HR:56 bpm ECG Measurements Heart Rate 56 AXIS IL 192 P 8 QRSd 103 QRS -51 QT 414 T-2 QTc 400 Conclusion Sinus rhythm...normal P axis, V-rate 50- 99 Left anterior fascicular block...axis(240,-40), init forces inf Low voltage, precordial leads...precordial leads <1.0mV Stress Test Summary: Date of study: 07/03/2018 (Report amended ) *PATIENT PRESENTATION* Height: 180.3cm (71in) Blood Pressure: Weight: 111.4kg (245lb) BSA: 2.4m^2 Referring physician: Reid Lauren Ordering physician: Yair Bazzi Impressions: - No evidence for myocardial ischemia. - Low risk of cardiac events. Summary: 1. Myocardial perfusion imaging: No myocardial perfusion defects noted. 2. The calculated left ventricular ejection fraction after stress: 33%, but normal by visual assessment. No left ventricular regional motion abnormality. 3. Stress ECG conclusions: The stress ECG is negative. 4. Stress: The target heart rate was achieved. There is a normal resting blood pressure with an appropriate response to stress. The patient experienced no chest pain during stress. Exercise capacity is godd (12 METS). Recommendations: Transthoracic echocardiography should be performed in order to evaluate LV function. Echocardiogram Summary: Date of Exam: 03/21/22 Sex: M Admission Date: 03/21/22 : 1960 Age: 61 APPROVED REPORT EXAM: Comprehensive 2D, Doppler, and color-flow Echocardiogram Patient Location: Out-Patient Clinical Dietician: Kristi Acuna RDCS (AE) Indications: New onset A Fib Other Information Study Quality: Adequate Conclusion Normal left ventricular wall thickness and chamber size. Estimated ejection fraction is 60%. Wall motion is normal Normal right ventricular size and systolic function Both atria are normal in size There is no structural or hemodynamically significant valvular disease Mildly dilated ascending aorta Patient was in sinus rhythm throughout the study Pulmonary Function Summary: DATE OF SERVICE: February 19, 2013. PRIMARY CARE PROVIDER: Yair Bazzi D.O. Spirometry shows mild obstructive airways disease with no significant bronchodilator response. Lung volumes show no evidence of restriction. Diffusion capacity normal. Airways resistance normal. IMPRESSION: Mild obstructive airways disease with no significant bronchodilator response. Clinical correlation recommended. Anesthesia Assessment and Plan Anesthesia History Personal History: No History of Anesthesia Complications Family History: No Family History of Anesthesia Complications Exercise Tolerance Exercise Tolerance: Metabolic Equivalents>4 Pertinent Negatives Pertinent Negatives: No Symptoms of GERD, No Major Pulmonary Symptoms or Complaints and No History of CVA/TIA Cardiac & Pulmonary Exam Cardiac Exam: Normal S1/S2 Heart Sounds Pulmonary Exam: Clear Bilateral Breath Sounds Implantable Cardiac Device Does patient have a Pacemaker or an ICD?: No Airway Exam Known Difficult Airway: No Mallampati Class: 1 Mouth Opening: Normal (> 3cm) Thyromental Distance: Less than 3 cm Neck Range of Motion: Full ROM Neck Circumference: Normal Teeth Condition: Normal Dentition ASA Classification ASA Score: ASA 3 Emergency Case?: No NPO Status NPO Status: NPO Clears >2 hours, Solids >8 hours Anesthesia Plan Resuscitation Status: Full Code Anesthesia Technique: General Anesthesia Airway Planned: Natural Airway Monitors Used: Standard Monitors
[2023-12-07 10:10] VITALS: BMI 33.9
--- NOTE | 2023-12-07 11:43 | ESO_PTH ---
PATIENT: Vishnu Yeager III LOC: [facility] U#:[id number] AGE/SX: 63/M ROOM: RE12/07/[address]: Jenn Smith : 1960 BED: DIS: 12/07/2023 SPEC #: [id number] RECD: 12/07/23 13:25 STATUS: LANIE GIRON #: [id number] SUDHAKAR: 12/07/23 11:[address]: Jenn Smith DEPT: Surgical Specimen RECD BY: Yael Li ENTERED: 12/07/23 13:27 SP TYPE: Polo GARCIA DR: Laron Elizondo, CLUB STEWARD Tissues: 1 - BIOPSY BOWEL 2 - BIOPSY BOWEL 3 - STOMACH BIOPSY 4 - STOMACH BIOPSY 5 - ESOPHAGUS BIOPSY 6 - ESOPHAGUS BIOPSY Procedures: GROSS AND MICRO LEVEL 4 Comments: [id number]
[2023-12-07 12:15] VITALS: BP 102/68; PULSE 60; RESP 16; TEMP 36.5; O2SAT 94
--- NOTE | 2023-12-07 12:26 | W.ANESPOSTOP ---
Postoperative Evaluation Date, Time and Location Date Performed: 12/07/23 Time Performed: 12:26 Patient Location: Day Surgery Unit Vital Signs Most Recent Imported Vital Signs: Most Recent Vital Signs Temp Pulse Resp BP Pulse Ox 36.5 C 60 16 102/68 94 12/07/23 12:15 12/07/23 12:15 12/07/23 12:15 12/07/23 12:15 12/07/23 12:15 Pain Score Most Recent Pain Score: Most Recent Pain Score Pain Level 0 12/07/23 12:15 Assessment Mental Status: Awake (Alert & Oriented to Patient Baseline) Airway and Respiratory Function: Patent airway with normal (patient baseline) respiratory exam Cardiovascular Function: Hemodynamically Stable Hydration Status: Adequately Hydrated Nausea & Vomiting: No Nausea or Vomiting Pain: Pt. Denies Any Pain Peripheral Nerve Block: Patient did not receive a nerve block
[2023-12-07 12:45] VITALS: BP 122/76; PULSE 58; RESP 16; TEMP 36.5; O2SAT 95
== END 2023-12-07 13:30 | disposition home or self-care (01) ==
LOC: SUR 09:12
PROVIDERS: PCP Nurse Practitioner Family; Visit Provider Surgery
PROC: (CPT 45378; principal; 2023-12-07 10:15)
DX: Z12.11 Encounter for screening for malignant neoplasm of colon (principal); K57.30 Diverticulosis of large intestine without perforation or abscess without bleeding; K22.70 Barrett's esophagus without dysplasia; K58.0 Irritable bowel syndrome with diarrhea; I10 Essential (primary) hypertension
CPT/HCPCS: 45378; 43239; 88305; J2371; J2704

== ENCOUNTER 2024-01-18 10:00 | Outpatient (RCR) | payer OTHER, SELFPAY ==
--- NOTE | 2024-01-18 13:32 | HOLTER_ITS ---
APPROVED REPORT Conclusion This is a 24-hour Holter monitor Predominant rhythm was sinus with an average heart rate of 61. Minimum was 43, maximum 94 There were rare isolated ventricular ectopic beats There were rare isolated atrial premature beats. There were several self-limited atrial runs. These were generally 3-4 beats in duration There was no atrial fibrillation no high-grade AV block no pauses greater than 3 seconds No patient symptoms were reported
== END 2024-01-18 23:59 | disposition home or self-care (01) ==
LOC: CARDOPNVT 10:00
PROVIDERS: PCP Nurse Practitioner Family; Visit Provider Internal Medicine Cardiovascular Disease
DX: I48.91 Unspecified atrial fibrillation (principal)
CPT/HCPCS: 93225

== ENCOUNTER 2024-01-19 15:51 | Outpatient (RCR) | payer OTHER, SELFPAY | END 2024-02-17 23:59 | disposition home or self-care (01) | LOC: CARDOPNVT 15:51 | PROVIDERS: PCP Nurse Practitioner Family; Visit Provider Internal Medicine Cardiovascular Disease | DX: I48.91 Unspecified atrial fibrillation (principal); I49.1 Atrial premature depolarization | CPT/HCPCS: 93226 ==

== ENCOUNTER → 2024-03-26 11:21 | Outpatient (BNVA) | payer MEDICARE, SELFPAY | PROVIDERS: PCP Nurse Practitioner Family; Referring Provider Nurse Practitioner Family; Visit Provider Internal Medicine Cardiovascular Disease | DX: I48.0 Paroxysmal atrial fibrillation (principal) | CPT/HCPCS: 99214 ==

== ENCOUNTER → 2024-04-03 10:54 | Outpatient (BNVA) | payer MEDICARE, SELFPAY | PROVIDERS: PCP Nurse Practitioner Family; Referring Provider Nurse Practitioner Family; Visit Provider Nurse Practitioner Gerontology | DX: N40.0 Benign prostatic hyperplasia without lower urinary tract symptoms (principal) | CPT/HCPCS: 51798; 81003; 99215 ==

== ENCOUNTER → 2024-04-17 10:19 | Outpatient (BNVA) | payer MEDICARE, SELFPAY | PROVIDERS: PCP Nurse Practitioner Family; Referring Provider Nurse Practitioner Family; Visit Provider Surgery | DX: K60.1 Chronic anal fissure (principal) | CPT/HCPCS: 99213 ==

== ENCOUNTER 2024-06-26 03:41 | Outpatient (CLI) | payer MEDICARE, SELFPAY ==
[2024-06-26 11:41] LABS: Anion Gap 10.2 mmol/L (3-11); BUN 19 mg/dL (7-18); CO2 25.8 mmol/L (21.0-32.0); CREATININE 1.2 mg/dL (0.70-1.30); Calculated LDL 64 mg/dL (<100); Chloride 107 mmol/L (98-107); Cholesterol 148 mg/dL (<200); Estimated GFR 67.11 (mL/min/1.73m2); Glucose 116 mg/dL (74-106); HDL Cholesterol 63 mg/dL (40-60); Potassium 3.7 mmol/L (3.5-5.1); Sodium 143 mmol/L (136-145); Triglyceride 108 mg/dL (<150)
[2024-06-26 19:48] LABS: PSA, Screening 1.6 ng/mL (<=4.5)
== END 2024-06-26 03:42 | disposition home or self-care (01) ==
LOC: LBO 03:41
PROVIDERS: PCP Nurse Practitioner Family; Visit Provider Nurse Practitioner Family
DX: Z12.5 Encounter for screening for malignant neoplasm of prostate (principal); Z13.1 Encounter for screening for diabetes mellitus; Z13.6 Encounter for screening for cardiovascular disorders
CPT/HCPCS: 36415; 80048; 80061; 84153

== ENCOUNTER 2024-07-03 00:52 | Outpatient (CLI) | payer MEDICARE, SELFPAY ==
--- NOTE | 2024-07-03 13:54 | DI.US_ITS ---
APPROVED REPORT Exam: Exercise Treadmill Patient Location: Out-Patient Room/Bed: Stress Nurse: Drew Fletcher RN and Papi Soria RN Ordering Provider:AUTUMN MOORE, Contact Number: [phone] BMI: 33.88 Baseline Rhythm: Sinus Bradycardia. Indications: Encounter for FAA examination; Atrial Fibrillation, unspecified. Medical History Medical History: Family Hx; Hyperlipidemia; Atrial Fibrillation; Hx of cardiac radiofrequency ablatio n; s/p Circumferential Ablation of Pulmonary Vein (03/11). Cardiac Medications: Atorvastatin; Doxazosin. Allergies: Tamsulosin. Cardiac Risk Factors: Family Hx; Hyperlipidemia. Previous Cardiac Procedures: Cardiac Radiofrequency Ablation; Circumferential Ablation of Pulmonary V ein (03/11). Pretest Chest Pain Characteristics: None. Exercise History: Indeterminate. Physical Disabilities: None. Lung Sounds: Clear bilaterally throughout, anterior and posterior. Heart Sounds: S1 and S2 auscultated. Stress Test Details Test: Exercise stress testing was performed using a Cachorro protocol. Rest Stress HR Resting HR Supine: 56 bpm Max Heart Rate (APMHR): 155 bpm Resting HR Standin bpm Target HR (85% APMHR): 132 bpm Max HR Achieved: 146 bpm % of APMHR: 94 Recovery HR: 69 bpm HR response to stress: Normal HR response to stress. BP Resting BP Supine: 120/80 mmHg Resting BP Standin/82 mmHg Max BP: 186/62 mmHg Recovery BP: 118/70 mmHg BP response to stress: Normal blood pressure response to stress. ECG Resting ECG: Sinus Bradycardia. Ectopy: None. Stress ECG: Sinus Tachycardia. ST Change: No significant ST segment changes noted. Arrhythmia: Occasional PAC's; Rare PVC's. Recovery ECG: Sinus Rhythm. Recovery ST Change: No significant ST segment changes noted. Recovery Arrhythmia: Occasional PAC's. Clinical Reason for Termination: Target HR Achieved. Stress Symptoms: Dyspnea. Exercise duration: 07 min09 sec Highest Stage Reached: Stage 3: 3.4 mph at 14% grade. Exercise capacity: 8.84 METs Angina Score: None Gudino Treadmill Score: 6.2 Rate Pressure Product: 12015 Stress ECG Conclusion 1. Resting electrocardiogram showed low voltage late transition LAFB 2. Patient exercised on the Cachorro protocol and completed workload of 8.84 METS 3. Normal heart rate and blood pressure response to exercise. The patient achieved 94% of predicted heart rate for age 4. There was no electrocardiographic evidence of myocardial ischemia with exercise 5. Resting echocardiogram showed, ejection fraction 60% 6. Postexercise echocardiogram showed augmented contractility of all segments, EF greater than 75% 7. There was no echocardiographic evidence of myocardial ischemia Gudino Treadmill Score is 6.2 which is Low risk. Stress Test Summary STAGE Time (mins) Speed (mph) Grade (%) HR BP SpO2 SYMPTOMS METS Supine 56 120/80 97 Standing 62 120/82 97 1 3 1.7 10 106 160/74 96 4.5 2 6 2.5 12 128 97 Pt. complaining of moderate shortness of breath. 7 3 9 3.4 14 146 Pt. complaining of moderate shortness of breath. 10 1 min recovery 108 97 Pt. complaining of moderate shortness of breath. 3 min recovery 69 186/62 Pt. complaining of mild shortness of breath. 6 min recovery 67 130/64 97 Pt. denies any shortness of breath. 9 min recovery 69 118/70 97 Pt. conversing pleasantly with nursing staff upon leaving the Stress Lab. Pt. left ambulatory in no a pparent distress.
== END 2024-07-03 01:12 ==
LOC: DI 00:52
PROVIDERS: PCP Nurse Practitioner Family; Visit Provider Internal Medicine Cardiovascular Disease
DX: I44.4 Left anterior fascicular block (principal)
CPT/HCPCS: 93306; 93350; 93017

== ENCOUNTER → 2024-09-15 13:21 | Outpatient (BNVA) | payer MEDICARE, SELFPAY | PROVIDERS: PCP Nurse Practitioner Family; Referring Provider Nurse Practitioner Family; Visit Provider Surgery | DX: K62.89 Other specified diseases of anus and rectum (principal); K60.1 Chronic anal fissure; K57.30 Diverticulosis of large intestine without perforation or abscess without bleeding; K52.9 Noninfective gastroenteritis and colitis, unspecified | CPT/HCPCS: 99213 ==

== ENCOUNTER 2024-10-23 01:43 | Outpatient (CLI) | payer MEDICARE, SELFPAY ==
--- NOTE | 2024-10-23 08:18 | DI.CT_ITS ---
Exam(s) CT HEAD WO CT SINUS WO EXAM: CT HEAD WO CLINICAL HISTORY: ONGOING SINUS/HEAD PAIN,J34.89,R51.9. TECHNIQUE: Imaging Protocol: Axial computed tomography images with coronal and sagittal reformatted images were created and reviewed COMPARISON: CT CT SINUS WO from 10/23/2024 FINDINGS: Ventricles and Extra axial spaces: Normal in size and morphology for the patient's age. Hemorrhage: None. Cerebral parenchyma: No evidence of acute infarct or mass. Midline shift: None. Brainstem/Cerebellum: Normal. Calvarium: Normal. Visualized Paranasal sinuses:Minimal mucosal thickening at the floor of the left maxillary sinus. Mastoids: Clear. Soft Tissues: Unremarkable. ORBITS: Unremarkable. PITUITARY: Not enlarged. IMPRESSION: No acute intracranial process. Minimal mucosal thickening at the floor left maxillary sinus. Remaining sinuses and mastoid air cell s are clear. RADIATION DOSE DELIVERED: Total DLP DATA REPOSITORY: All CT scans at this facility are submitted to the National Radiology Data Registry (NRDR) Dose Index Registry (DIR) with the [employer] (ACR). RADIATION OPTIMIZATION: All CT scans at this facility use at least one of these dose optimization te chniques: automated exposure control; mA and/or kV adjustment per patient size (includes targeted exa ms where dose is matched to clinical indication); or iterative reconstruction.
== END 2024-10-23 02:03 ==
PROVIDERS: PCP Nurse Practitioner Family; Visit Provider Nurse Practitioner Family
DX: J34.89 Other specified disorders of nose and nasal sinuses (principal); R51.9 Headache, unspecified
CPT/HCPCS: 70450; 70486

== ENCOUNTER → 2024-12-17 10:23 | Outpatient (BNVA) | payer MEDICARE, SELFPAY | PROVIDERS: PCP Nurse Practitioner Family; Referring Provider Nurse Practitioner Family; Visit Provider Nurse Practitioner Adult Health | DX: G43.009 Migraine without aura, not intractable, without status migrainosus (principal) | CPT/HCPCS: 99215 ==

== ENCOUNTER → 2025-01-05 08:58 | Outpatient (BNVA) | payer MEDICARE, SELFPAY | PROVIDERS: PCP Nurse Practitioner Family; Referring Provider Nurse Practitioner Family; Visit Provider Student in an Organized Health Care Education/Training Program | DX: K60.1 Chronic anal fissure (principal) | CPT/HCPCS: 99214 ==

== ENCOUNTER → 2025-02-02 13:23 | Outpatient (BNVA) | payer MEDICARE, SELFPAY | PROVIDERS: PCP Nurse Practitioner Family; Referring Provider Nurse Practitioner Family; Visit Provider Nurse Practitioner Adult Health | DX: G43.009 Migraine without aura, not intractable, without status migrainosus (principal); R42 Dizziness and giddiness; I10 Essential (primary) hypertension | CPT/HCPCS: 99214 ==

== ENCOUNTER → 2025-04-06 08:56 | Outpatient (BNVA) | payer MEDICARE, SELFPAY | PROVIDERS: PCP Nurse Practitioner Family; Referring Provider Nurse Practitioner Family; Visit Provider Student in an Organized Health Care Education/Training Program | DX: K60.1 Chronic anal fissure (principal) | CPT/HCPCS: 99214 ==

== ENCOUNTER 2025-04-16 13:30 | Outpatient (CLI) | payer MEDICARE, SELFPAY ==
--- NOTE | 2025-04-16 07:15 | DI.CT_ITS ---
Exam(s) CT ABDOMEN PELVIS W EXAM: CT ABDOMEN PELVIS W CLINICAL HISTORY: ? perianal or perirectal abscess,K61.0. TECHNIQUE: Imaging Protocol: Axial computed tomography images with coronal and sagittal reformatted images were created and reviewed CONTRAST MATERIAL: Intravenous: Omnipaque-350 100cc Oral: Yes. Oral contrast was also administered for bowel opacification. FINDINGS: VISUALIZED LUNG BASES: No nodules nor pleural effusions evident. ABDOMEN: There is no ascites. GI: There is no hiatal hernia. The oral contrast has reached the upper sigmoid at the time of image acquisition. There is no evidence of bowel obstruction, free air, nor abscess. No malrotation. No enteritis or colitis pattern. There is no significant colonic diverticular disease. No evidence of appendicitis. LIVER: Small 4 millimeter cyst or hemangioma in the right hepatic lobe. There are no concerning hepatic lesions evident. No dilated intrahepatic ducts. GALLBLADDER/BILIARY: Cholelithiasis. There is small gallstones on the dependent wall the gallbladder lumen. The gallbladder is not distended nor edematous and there is no pericholecystic fluid. Cystic and common bile duct are not dilated. No dilated intrahepatic ducts. PANCREAS: No evidence of pancreatic mass nor dilatation of the pancreatic duct. SPLEEN: Spleen is not enlarged. No obvious intrasplenic lesions. Splenic and portal veins are patent. ADRENALS: There are no significant adrenal masses. KIDNEYS:Right kidney unremarkable. There is solitary nonobstructive calculus in upper pole calyx of the left kidney. This calculus measures approximately 5 x 3 mm. No other intrarenal calculi. There are no calculi in the nondilated ureters nor the ureterovesical junctions is nor radiopaque calculi seen within the urinary bladder. There are no cysts nor solid renal masses.. ABDOMINAL AORTA: Abdominal aorta is not enlarged. LYMPH NODES:There is no retroperitoneal nor paraaortic adenopathy. ABDOMINAL WALL: No evidence of significant anterior abdominal wall nor significant inguinal hernia. GI: There is no evidence of bowel obstruction, free air, nor abscess. PELVIS: GI: No evidence of appendicitis.No evidence of sigmoid diverticulitis.No evidence of Areli anal nor perirectal abscess, as per request. LYMPH NODES: No intrapelvic nor inguinal adenopathy REPRODUCTIVE: Prostate size is normal but there is anterior lobulation which indents the bladder base. PSA testing recommended. URINARY BLADDER: Prostate finding as above. Bladder otherwise unremarkable. OSSEOUS: No fractures and no significant osseous lesions. IMPRESSION: 1. There is no evidence of perianal or perirectal abscess, as per request. 2. No other GI findings 3. Cholelithiasis noted without evidence of acute cholecystitis nor significant dilatation of the biliary tree. 4. There is a solitary nonobstructive calculus in the left kidney measuring 5 mm. 5. Lobulated prostate gland which indents the bladder base. Recommend further prostate testing. RADIATION DOSE DELIVERED: 875.68mGy.cm Total DLP DATA REPOSITORY: All CT scans at this facility are submitted to the National Radiology Data Registry (NRDR) Dose Index Registry (DIR) with the [employer] (ACR). RADIATION OPTIMIZATION: All CT scans at this facility use at least one of these dose optimization techniques: automated exposure control; mA and/or kV adjustment per patient size (includes targeted exams where dose is matched to clinical indication); or iterative reconstruction.
[2025-04-16] MEDS: Barium Sulfate 2% W/V-Berry Smoothie 450 ML BTL PO (11:31)
[2025-04-16] MEDS: Barium Sulfate 2% W/V-Creamy Vanilla Smoothie 450 ML BTL PO (11:32)
[2025-04-16 12:05] LABS: Estimated GFR 83.01 (mL/min/1.73m2)
[2025-04-16] MEDS: Normal Saline - Diluent 50 ML VIAL IJ (14:41)
[2025-04-16] MEDS: Normal Saline Flush 10 ML SYR IVP (14:41)
[2025-04-16] MEDS: Omnipaque 350 MG/ML 100 ML BTL IJ (14:42)
== END 2025-04-16 13:50 ==
LOC: DI 13:31
PROVIDERS: Physical Therapy Assistant; PCP Nurse Practitioner Family; Visit Provider Student in an Organized Health Care Education/Training Program
DX: K61.0 Anal abscess (principal); K80.80 Other cholelithiasis without obstruction
CPT/HCPCS: 74177; 82565; J3490

== ENCOUNTER → 2025-04-30 15:13 | Outpatient (BNVA) | payer MEDICARE, SELFPAY | PROVIDERS: PCP Nurse Practitioner Family; Referring Provider Nurse Practitioner Family; Visit Provider Nurse Practitioner Gerontology | DX: N40.0 Benign prostatic hyperplasia without lower urinary tract symptoms (principal) | CPT/HCPCS: 99213 ==

== ENCOUNTER 2025-04-30 16:26 | Outpatient (CLI) | payer MEDICARE, SELFPAY ==
[2025-05-01 18:16] LABS: PSA, Diagnostic 1.5 ng/mL (<=4.5)
== END 2025-04-30 16:27 | disposition home or self-care (01) ==
LOC: LBO 16:26
PROVIDERS: PCP Nurse Practitioner Family; Visit Provider Nurse Practitioner Gerontology
DX: N40.1 Benign prostatic hyperplasia with lower urinary tract symptoms (principal)
CPT/HCPCS: 36415; 84153

== ENCOUNTER → 2025-05-05 12:45 | Outpatient (BNVA) | payer MEDICARE, SELFPAY | PROVIDERS: PCP Nurse Practitioner Family; Referring Provider Nurse Practitioner Family; Visit Provider Psychiatry & Neurology Neurology | DX: R42 Dizziness and giddiness (principal); G43.009 Migraine without aura, not intractable, without status migrainosus | CPT/HCPCS: 99213 ==

== ENCOUNTER 2025-05-11 10:40 | Day surgery (SDC) | payer MEDICARE, SELFPAY ==
[2025-05-11 11:12] VITALS: BP 129/82; PULSE 63; RESP 16; TEMP 36.2; O2SAT 97
--- NOTE | 2025-05-11 11:22 | W.ANESPRE ---
General Info Date of Service Date Performed: 05/11/25 Height: 5 ft 11 in Weight: 114.1 kg Body Mass Index (BMI): 35.1 Surgical Procedure: Operation Date: 05/11/25 12:10 Proposed Procedure Side Surgeon p Exam Under Anesthesia-Fissurectomy Germán Monterroso MD Meds Allergies and Home Medications Allergies Allergy/AdvReac Type Severity Reaction Status Date / Time pertussis vaccine,adsorbed AdvReac Severe Possible Verified 05/11/25 11:11 reaction- hospitalized tamsulosin HCl (From Flomax) AdvReac Mild Pt didn't Verified 05/11/25 11:11 like side effects Home Medication ?Medication ?Instructions ?Recorded multivitamin 1 ea PO DAILY 10/24/12 omega-3 fatty acids-fish oil 340 1 ea PO DAILY 05/23/17 mg-1,000 mg capsule (Fish Oil) famotidine 20 mg tablet 20 mg PO BID #180 tabs 07/17/20 carbidopa 10 mg-levodopa 100 mg 1 tab PO HS PRN muscle spasm #90 01/04/23 tablet tabs atorvastatin 20 mg tablet 20 mg PO DAILY 03/13/23 loperamide 2 mg capsule 2 mg PO TID PRN loose stool #90 07/06/23 (Anti-Diarrheal (loperamide)) caps nitroglycerin 0.4 % (w/w) rectal 1 inch [place] BID 2 weeks #30 grams 03/20/24 ointment trazodone 50 mg tablet 50 mg PO QHS PRN sleep #30 tabs 06/23/24 cyclosporine 0.05 % eye drops in a 1 drp ophthalmic (eye) BID 09/19/24 dropperette azelastine 137 mcg-fluticasone 50 1 spray intranasal BID #69 grams 01/13/25 mcg/spray nasal spray (Dymista) magnesium oxide 500 mg capsule 500 mg PO DAILY 02/02/25 doxazosin 4 mg tablet (Cardura) 4 mg PO HS #90 tabs 03/04/25 apixaban 5 mg tablet (Eliquis) 5 mg PO BID 04/30/25 Current Visit Medications: Current Medications Generic Name Dose Route Start Last Admin Trade Name Freq PRN Reason Stop Dose Admin Ringer's Solution 1,000 mls @ 80 mls/hr 05/11/25 06:00 IV 05/11/25 23:59 INFUSION JOSUÉ IV Miscellaneous Supplies 1 each 05/11/25 06:00 Iv Access IV 05/11/25 23:59 DIRECTED JOSUÉ Sodium Chloride 0 ml 05/11/25 06:00 Normal Saline Flush 10 Ml Syr IV 05/11/25 23:59 PRN PRN Sodium Chloride 0 ml 05/11/25 06:00 Normal Saline 10 Ml Vial IJ 05/11/25 23:59 DIRECTED PRN Sterile Water 0 ml 05/11/25 06:00 Water,Injection,Sterile 10 Ml Vial IJ 05/11/25 23:59 DIRECTED PRN PFSH Active Problems Active Problems: Problem Status Onset Code Perianal abscess Acute K61.0 Dizziness Acute R42 Fullness in left ear Acute H93.8X2 Chronic diarrhea Acute K52.9 Chronic anal fissure Acute K60.1 Anal pain Acute K62.89 Diverticula of colon Acute K57.30 BCC (basal cell carcinoma) Acute C44.91 IBS (irritable bowel syndrome) Chronic K58.9 Family history of ischemic heart disease Acute Z82.49 Paroxysmal atrial fibrillation Acute I48.0 Onychomycosis Acute B35.1 Sensorineural hearing loss, bilateral Acute H90.3 Vasomotor rhinitis Acute J30.0 Insomnia Acute G47.00 Vasomotor rhinitis Acute J30.0 Duodenal ulcer Acute K26.9 Esophagitis Acute K20.9 Actinic keratosis Acute L57.0 Khan's esophagus without dysplasia Acute 11/21/16 K22.70 BPH (benign prostatic hyperplasia) Acute N40.0 Essential hypertension Acute 05/19/13 I10 Hyperlipidemia Acute E78.5 Irritable bowel syndrome with diarrhea Acute 11/21/16 K58.0 Malignant melanoma of skin Acute C43.9 Migraine without aura and without status migrainosus, not intractable Acute 10/15/17 G43.009 RLS (restless legs syndrome) Acute 11/21/16 G25.81 Rosacea Acute L71.9 Medical History Medical History Atrial fibrillation BPPV (benign paroxysmal positional vertigo) Prostatitis Torn rotator cuff states he has not had this repaired yet, and he also states torn bicep tendon as well. Hx of hemorrhoids Facial eczema (07/04/13) LAD on EKG Pt. states he had a full cardiac work-up and was told my heart skipped a beat, and it was normal, but i've never had a problem with it, but the EKG I had in the fall never showed any evidence of that Peptic ulcer disease Prostatism with hematuria Melanoma Actinic keratosis Surgical History Surgical History H/O cardiac radiofrequency ablation Status post circumferential ablation of pulmonary vein [facility] [place] P[place] Ablation. -hb left ulnar nerve transplant 2006 Vasectomy Replacement of total knee joint 01/18/15-RIGHT Tonsillectomy and adenoidectomy Repair of inguinal hernia right EGD - MAC (~11/2023) 2013, 2015, 2018 Colonoscopy - MAC (~11/2023) 08/10/14 Arthroplasty of knee right 1997,2000 Tobacco Smoking/Tobacco Use Status: Never Passive smoking exposure: Yes Second hand exposure: Yes Alcohol Alcohol Intake: current Alcohol intake frequency: a few times a month Alcohol type: beer Substance Use Substance use: Never Substance use type: does not use Vital Signs and Lab Results Vital Signs Most Recent Vital Signs in EMR: Most Recent Vital Signs Temp Pulse Resp BP Pulse Ox 36.2 C L 63 16 129/82 97 05/11/25 11:12 05/11/25 11:12 05/11/25 11:12 05/11/25 11:12 05/11/25 11:12 Lab Results Complete Metabolic Panel: Creatinine, (0.70-1.30) 1.0 mg/dL 04/16/25, 11:45 Est GFR (CKD-EPI 2020), (mL/min/1.73m2) 83.01 04/16/25, 11:45 Imaging and Studies Imaging and Studies Study information below may be from another EMR and interpreted by another provider. Please see original notes in EMR for more complete details. EKG Summary: DATE/TIME OF SERVICE: 06/20/23899 : 1960 PERFORMING LOCATION: .CARD APPROVED REPORT Exam: Resting ECG Reason for Exam: PAF Patient Location: O HR:56 bpm ECG Measurements Heart Rate 56 AXIS WY 192 P 8 QRSd 103 QRS -51 QT 414 T-2 QTc 400 Conclusion Sinus rhythm...normal P axis, V-rate 50- 99 Left anterior fascicular block...axis(240,-40), init forces inf Low voltage, precordial leads...precordial leads <1.0mV Stress Test Summary: Date of study: 07/03/2018 (Report amended ) *PATIENT PRESENTATION* Height: 180.3cm (71in) Blood Pressure: Weight: 111.4kg (245lb) BSA: 2.4m^2 Referring physician: Reid Lauren Ordering physician: Yair Bazzi Impressions: - No evidence for myocardial ischemia. - Low risk of cardiac events. Summary: 1. Myocardial perfusion imaging: No myocardial perfusion defects noted. 2. The calculated left ventricular ejection fraction after stress: 33%, but normal by visual assessment. No left ventricular regional motion abnormality. 3. Stress ECG conclusions: The stress ECG is negative. 4. Stress: The target heart rate was achieved. There is a normal resting blood pressure with an appropriate response to stress. The patient experienced no chest pain during stress. Exercise capacity is godd (12 METS). Recommendations: Transthoracic echocardiography should be performed in order to evaluate LV function. 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 Estimated ejection fraction is 60%. Wall motion is normal Normal right ventricular size and systolic function Both atria are normal in size There is no structural or hemodynamically significant valvular disease Mildly dilated ascending aorta Patient was in sinus rhythm throughout the study Pulmonary Function Summary: DATE OF SERVICE: February 19, 2013. PRIMARY CARE PROVIDER: Yair Bazzi D.O. Spirometry shows mild obstructive airways disease with no significant bronchodilator response. Lung volumes show no evidence of restriction. Diffusion capacity normal. Airways resistance normal. IMPRESSION: Mild obstructive airways disease with no significant bronchodilator response. Clinical correlation recommended. Anesthesia Assessment and Plan Anesthesia History Personal History: No History of Anesthesia Complications Family History: No Family History of Anesthesia Complications Exercise Tolerance Exercise Tolerance: Metabolic Equivalents>4 Pertinent Negatives Pertinent Negatives: No Symptoms of GERD, No Major Cardiovascular Symptoms or Complaints and No Major Pulmonary Symptoms or Complaints Cardiac & Pulmonary Exam Cardiac Exam: Normal S1/S2 Heart Sounds Pulmonary Exam: Clear Bilateral Breath Sounds Implantable Cardiac Device Does patient have a Pacemaker or an ICD?: No Airway Exam Known Difficult Airway: No Mallampati Class: 2 Mouth Opening: Normal (> 3cm) Thyromental Distance: Less than 3 cm Neck Range of Motion: Full ROM Neck Circumference: Thick Teeth Condition: Normal Dentition ASA Classification ASA Score: ASA 2 Emergency Case?: No NPO Status NPO Status: NPO Clears >2 hours, Solids >8 hours Anesthesia Plan Resuscitation Status: Full Code Anesthesia Technique: General Anesthesia Airway Planned: Natural Airway Monitors Used: Standard Monitors
[2025-05-11 11:27] VITALS: BMI 35.1
[2025-05-11] MEDS: Lactated Ringers 1,000 ML 80 ML IV (11:29)
--- NOTE | 2025-05-11 12:02 | W.SURGCON ---
Date of service: 05/11/25 Time of Service: 12:02 Assessment and Plan Assessment and plan (1) Perianal abscess: Status: Acute Assessment and plan: 65-year-old man here for exam under anesthesia for perianal issues of unknown etiology or significance. Plan for today's exam under anesthesia and any possible indicated procedures such as hemorrhoid banding, fissure biopsy, fistulotomy and/or seton as easy examples. Incidentally he has prostate issues and saw urology who recommended a detailed prostate examination when he is asleep -we will coordinate with urology to examine his prostate once he is asleep. History of Present Illness Narrative: 65-year-old man here for exam under anesthesia. PFSH All Active Problems Perianal abscess (Acute) Dizziness (Acute) Fullness in left ear (Acute) Chronic diarrhea (Acute) Chronic anal fissure (Acute) Anal pain (Acute) Diverticula of colon (Acute) BCC (basal cell carcinoma) (Acute) IBS (irritable bowel syndrome) (Chronic) Family history of ischemic heart disease (Acute) Paroxysmal atrial fibrillation (Acute) Ablation in February 2023 Onychomycosis (Acute) Sensorineural hearing loss, bilateral (Acute) Vasomotor rhinitis (Acute) Sees ENT Insomnia (Acute) Vasomotor rhinitis (Acute) Duodenal ulcer (Acute) Esophagitis (Acute) Actinic keratosis (Acute) Khan's esophagus without dysplasia (Acute 11/21/16) BPH (benign prostatic hyperplasia) (Acute) Essential hypertension (Acute 05/19/13) Hyperlipidemia (Acute) Irritable bowel syndrome with diarrhea (Acute 11/21/16) Malignant melanoma of skin (Acute) right chest 10/2011 Migraine without aura and without status migrainosus, not intractable (Acute 10/15/17) RLS (restless legs syndrome) (Acute 11/21/16) Rosacea (Acute) Medical History Atrial fibrillation BPPV (benign paroxysmal positional vertigo) Prostatitis Torn rotator cuff states he has not had this repaired yet, and he also states torn bicep tendon as well. Hx of hemorrhoids Facial eczema (07/04/13) LAD on EKG Pt. states he had a full cardiac work-up and was told my heart skipped a beat, and it was normal, but i've never had a problem with it, but the EKG I had in the fall never showed any evidence of that Peptic ulcer disease Prostatism with hematuria Melanoma Actinic keratosis Surgical History H/O cardiac radiofrequency ablation Status post circumferential ablation of pulmonary vein [facility] [place]19[place]23 PVI Ablation. -hb left ulnar nerve transplant 2006 Vasectomy Replacement of total knee joint 01/18/15-RIGHT Tonsillectomy and adenoidectomy Repair of inguinal hernia right EGD - MAC (~11/2023) 2013, 2015, 2018 Colonoscopy - MAC (~11/2023) 08/10/14 Arthroplasty of knee right 1997,2000 Family History Mother , 93 Essential hypertension Depression Heart disease Hyperlipidemia Stroke Cancer Father , 67 Heart disease Hyperlipidemia Sister Heart disease Brother Hyperlipidemia Diabetes Heart disease Maternal Grandfather Heart disease Paternal Grandfather Heart disease Maternal Grandmother No problems noted. Paternal Grandmother No problems noted. Sister Depression Son No problems noted. Son No problems noted. 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 [employer] Pets and animals: Yes Pets and animals: dog(s) Sexually active: Yes Do you think of yourself as: straight/heterosexual Current gender identity: male What is your relationship status?: How often do you talk on the phone with friends or family?: twice per week How often do you get together with friends or relatives?: three or more times per week How often do you attend anabaptist or christian services?: 1-3 times per year Do you belong to any clubs or organized social groups?: yes Panel score (0-1 are the most socially isolated patients): 3 What type of physical activity do you participate in: bicycling, weight lifting and other Details: golf,hockey,boot camp Duration: 45-60 minutes/day Frequency: 5-6 times per week Cindy/Worship: Non yazidi Special cindy needs: No Agree to transfusion: Yes Seatbelt use: always Helmet use: Yes Helmet use: always Drive 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 Good insight and understanding into condition. Chest: Non-labored breathing, no wheezing, no visible shortness of breath. Heart: Regular Results Last Vital Signs Temp 97.2 F L 05/11/25 11:12 Pulse 63 05/11/25 11:12 Resp 16 05/11/25 11:12 BP 129/82 05/11/25 11:12 Pulse Ox 97 05/11/25 11:12
[2025-05-11] MEDS: Bupivacaine 0.25% Pres-Free 10 ML VIAL (12:31)
[2025-05-11] MEDS: Bupivacaine LIPOSOME/PF 133 MG/10 ML VIAL IJ (12:31)
[2025-05-11 12:49] VITALS: BP 103/66; PULSE 55; RESP 16; TEMP 35.8; O2SAT 93
--- NOTE | 2025-05-11 12:56 | W.PM.OP ---
Operative Note Operative Note Refer to Anesthesia Record Procedure Description: PROCEDURES PERFORMED: 1. Exam under anesthesia 2. Bilateral Pudendal Nerve block 3. Anoscopy 4. Fistulotomy PREOPERATIVE DIAGNOSIS: Chronic anal fissure POSTOPERATIVE DIAGNOSIS: Fistula en ano, grade 2 internal hemorrhoid disease, mild external hemorrhoid disease SURGEON: Singh Monterroso MD INDICATION FOR PROCEDURE: 65-year-old man with chronic perianal pain and discharge since having a colonoscopy. Reportedly had a chronic anal fissure afterwards and was treating it for many months with creams. Continues to have symptoms on and off. 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 The tract originates below dentate line but travels through the majority of the anal canal and external on the anoderm. Standard fistulotomy performed over top of the lacrimal probe. Did NOT go through any significant portion of sphincter muscle. Dr. Redman(urology) performed examination of the prostate and reported a normal exam. SURVEILLANCE interval/FOLLOW-UP: Will see him back in the office in 4 to 6 weeks. His hemorrhoid disease is likely secondary to the ongoing anal canal issues and so no intervention was performed on them. SPECIMENS: None EBL: Minimal COMPLICATIONS: None Procedure in detail: The patient gave written consent and was in agreement with the indications, the potential risks as well as the benefits of the procedure. He was taken the operating room and anesthesia was given which was tolerated well. We placed him in lithotomy. We performed a timeout. Dr. Redman from urology performed a digital examination of the prostate gland. He reported that it feels normal. Next I performed a visual and digital examination. In the posterior midline is a fistula tract. Visually, I can appreciate an opening just distal to the dentate line in the posterior midline as well. I concluded the surgical procedure would be necessary and then I prepped and draped the perineum, perianal area in the buttocks in sterile fashion using Betadine for antiseptic. Using a combination of Exparel and quarter percent Marcaine, I performed a bilateral pudendal nerve block as well as some local anesthetic within the anal tissue. Exam under anesthesia was performed. The fistula is clearly visible on the external anoderm. A well?lubricated anoscope was gently introduced. The anal canal was carefully inspected and looked normal with the exception of where the fistula clearly originates in the posterior midline, just distal to the dentate line. The patient does have significant internal hemorrhoid disease but this may be a side effect of the anal canal pathology. A lacrimal probe was used to delineate the fistula tract. Using needle tip cautery I opened up the fistula tract completely over top of the lacrimal probe. I did not go through any significant amount of sphincter muscle tissue. Hemostasis was achieved with pressure and cautery. The patient tolerated the procedure well and was taken to the PACU in hemodynamically stable condition. Date of Procedure: 05/11/25
--- NOTE | 2025-05-11 13:10 | W.PM.DSUDISC ---
Date of service: 05/11/25 Discharge Plan Disposition Patient Disposition: Home Condition: Good Discharge Details Attending Provider: Germán Monterroso Primary Care Provider: Laron Elizondo Home Meds and New Rx's Prescriptions: No Action trazodone 50 mg tablet 50 mg PO QHS PRN (Reason: sleep) Qty: 30 0RF nitroglycerin 0.4 % (w/w) ointment 1 inch NH BID 14 Days Qty: 30 3RF Rx Instructions: wash hands well after application. can cause headaches magnesium oxide 500 mg capsule 500 mg PO DAILY Eliquis 5 mg tablet 5 mg PO BID cyclosporine 0.05 % dropperette 1 drp ophthalmic (eye) BID Rx Instructions: 1 drop BL eyes BID multivitamin 1 EACH tablet 1 ea PO DAILY Fish Oil 1 EACH capsule 1 ea PO DAILY famotidine 20 mg tablet 20 mg PO BID Qty: 180 2RF carbidopa-levodopa 10-100 mg tablet 1 tab PO HS PRN (Reason: muscle spasm) Qty: 90 3RF atorvastatin 20 mg tablet 20 mg PO DAILY Rx Instructions: Per [facility] 02/19/2023. 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 The fistula often happens as a result of a infection in the anal canal. That can be from the trauma of the colonoscopy but can also happen spontaneously from anal crypt glands getting infected. They are common problems and can be a nuisance and a long timeline to full recovery and cure. Today we opened this fistula tract surgically. That is the first step in management and typically/usually will be successful. I am optimistic that you will have a complete recovery in the next 6 to 8 weeks. However, it is possible for the fistula tracts to recur and for another surgery to be necessary. Hopefully that does not happen. You do have some hemorrhoid disease that was seen today. However, I suspect the hemorrhoid disease is secondary to what has been going on in your anal canal. Thus, we did not do any intervention on your hemorrhoid veins because they may quiet down after this heals. Follow-up with me in the office in 4 to 6 weeks to see how things are going. INSTRUCTIONS: Activity: As tolerated. There are no restrictions, but if it hurts, go easier on your body. Diet: As tolerated but avoid anything that makes you constipated for the next month Medications: Resume any/all of your usual/regular home medications. Pain control: Take Tylenol, 1000 mg, every 6 hours on a schedule for the next 3 days. You can use ibuprofen in addition to Tylenol if needed. Ice can be used as needed. No narcotics. I highly recommend taking sitz bathes 3 times a day for the next 2 weeks. Very hot water, but do not burn yourself. Soak for 10-15 minutes. Overall: Symptoms should not be worsening. If you have any difficulty breathing or you have return of symptoms of brought you to the hospital or your pain is otherwise worsening each day and you should call the doctor's office or come into the hospital to be checked out. Stand Alone Forms: Anesthesia Discharge Inst., Colonoscopy Post Instructions, Rosanne Theodore (DSU) Activity:: Activity as Tolerated Diet:: As Tolerated DS: Diagnosis Discharge Diagnosis (1) Perianal abscess: Status: Acute
[2025-05-11 13:18] VITALS: BP 97/62; PULSE 50; RESP 16; TEMP 35.9; O2SAT 95
--- NOTE | 2025-05-11 13:29 | W.ANESPOSTOP ---
Postoperative Evaluation Date, Time and Location Date Performed: 05/11/25 Time Performed: 13:34 Patient Location: Day Surgery Unit Vital Signs Most Recent Imported Vital Signs: Most Recent Vital Signs Temp Pulse Resp BP Pulse Ox 35.9 C L 50 L 16 97/62 L 95 05/11/25 13:18 05/11/25 13:18 05/11/25 13:18 05/11/25 13:18 05/11/25 13:18 Assessment Mental Status: Awake (Alert & Oriented to Patient Baseline) Airway and Respiratory Function: Patent airway with normal (patient baseline) respiratory exam Cardiovascular Function: Hemodynamically Stable Hydration Status: Adequately Hydrated Nausea & Vomiting: No Nausea or Vomiting Pain: Pain is Moderate or Severe Postoperative Pain Management: Pain being addressed with medication Peripheral Nerve Block: Patient did not receive a nerve block
== END 2025-05-11 13:55 | disposition home or self-care (01) ==
PROVIDERS: PCP Nurse Practitioner Family; Visit Provider Student in an Organized Health Care Education/Training Program
PROC: (CPT 46275; principal; 2025-05-11 12:00)
DX: K60.30 Anal fistula, unspecified (principal); K64.1 Second degree hemorrhoids; H90.3 Sensorineural hearing loss, bilateral; G47.00 Insomnia, unspecified; N40.0 Benign prostatic hyperplasia without lower urinary tract symptoms; I48.0 Paroxysmal atrial fibrillation; I10 Essential (primary) hypertension; E78.5 Hyperlipidemia, unspecified; K58.0 Irritable bowel syndrome with diarrhea; K64.4 Residual hemorrhoidal skin tags
CPT/HCPCS: 46275; J0665; J0666; J1885; J2003; J2250; J2405; J2704

== ENCOUNTER → 2025-06-08 13:35 | Outpatient (BNVA) | payer MEDICARE, SELFPAY | PROVIDERS: PCP Nurse Practitioner Family; Referring Provider Nurse Practitioner Family; Visit Provider Student in an Organized Health Care Education/Training Program | DX: Z09 Encounter for follow-up examination after completed treatment for conditions other than malignant neoplasm (principal); K61.0 Anal abscess | CPT/HCPCS: 99024 ==